=== PATIENT | female | born 1965 | race Caucasian/White ===

== ENCOUNTER 2024-01-10 14:08 | Outpatient (REF) | payer MEDICARE, MEDICAID, SELFPAY ==
--- NOTE | ~2024-01-10 | XR_ITS ---
EXAMINATION: XR CHEST CLINICAL INFORMATION: Cough. COMPARISON: None available. TECHNIQUE: 3 views of the chest. FINDINGS: The lungs are well-inflated. Mild degenerative changes in the thoracic spine. S-shaped thoracolumbar scoliosis. Heart size is normal. Left subclavian approach pacer with leads projecting over right atrium and right ventricle. Mild streaky opacities at the left lung base may represent mild subsegmental atelectasis/fat pad, however, an infectious/inflammatory process should also be considered in the appropriate clinical setting. XR/XR chest 2V IMPRESSION: Mild streaky opacities at the left lung base may represent mild subsegmental atelectasis/fat pad, however, an infectious/inflammatory process should also be considered in the appropriate clinical setting.
--- NOTE | ~2024-01-10 | XR_ITS ---
EXAMINATION: XR SHOULDER, LEFT CLINICAL INFORMATION: Pain and degenerative joint disease COMPARISON: None available. TECHNIQUE: AP external rotation, Grashey, scapular Y, and axillary views of the left shoulder. FINDINGS: The bones and soft tissues are unremarkable aside from some mild degenerative changes at the AC joint. No fracture. Glenohumeral and acromioclavicular alignment is anatomic with glenohumeral normal joint space. No abnormal soft tissue calcifications. A left chest wall pacemaker is partially visualized. XR/XR shoulder LT min 2V IMPRESSION: Mild degenerative changes at the AC joint.
== END 2024-01-10 14:09 | disposition home or self-care (01) ==
LOC: HO.XRAY 14:08
PROVIDERS: PCP Internal Medicine; Visit Provider Internal Medicine
DX: R05.9 Cough, unspecified (principal); M25.512 Pain in left shoulder
CPT/HCPCS: 71046; 73030

== ENCOUNTER 2025-02-13 13:02 | Outpatient (AMB) | payer MEDICARE, MEDICAID, SELFPAY ==
--- OUTSIDE RECORDS SUMMARY | 2020-08-03 04:36 | XMS_ITS | Continuity of Care Document ---
Author Organization [employer] [facility] Address [address] [place] [address] Phone Care Team Providers Care Flanging Roll Operator Name Role Phone Unavailable Unavailable Unavailable Medications Medication Instructions Dosage Effective Dates (start - stop) Status Comments Prozac 40 mg capsule take 2 capsule by oral route every day in the morning 80 MG - Active atorvastatin 10 mg tablet take 1 tablet by oral route every day 10 MG - Active hydroxyzine pamoate 25 mg capsule take 1 capsule by oral route every day 25 MG - Active alprazolam 0.5 mg tablet take 1 tablet by oral route BID prn severe anxiety - No Longer Active she will see psychiatrist on Monday for evaluation and refill if indicated. this is short dx Procedures Procedure Date OFFICE/OUTPATIENT VISIT, EST PHONE E/M BY PHYS 21-30 MIN BEHAV CHNG SMOKING 3-10 MIN PHONE E/M BY PHYS 21-30 MIN Depression Screen Negative Clin depres scrn Positive no f/u doc Dec Telehealth Visit Clin depres scrn Positive no f/u doc November OFFICE/OUTPATIENT VISIT, EST Telehealth Visit OFFICE/OUTPATIENT VISIT, EST OFFICE/OUTPATIENT VISIT, NEW As per patient privacy policy some of the clinical information may not be visible. Advance Directives Directive Yes / No Effective Date File Name No Information Encounters Encounter Description Practice Location Reason(s) For Visit Diagnoses Date Provider Providers Copied on Encounter OFFICE/OUTPA TIENT VISIT, EST [facility], [address], [place], [id number], [place] tel:[phone] Medical Anxiety (chief complaint)M edications (chief complaint)T H visit (chief complaint) Anxiety disorder, unspecifiedHyper lipidemia, unspecified hyperlipidemia type 1 No Information Referring Provider: [facility], [address] [place] [address], [id number]. tel:[phone] [facility], [address], [place], [id number], [place] tel:[phone] Medical Telehealth (chief complaint)i nsomnia (chief complaint) Insomnia, unspecified type 0 No Information PHONE E/M BY PHYS 21-30 MIN [facility], [address] [place] [address], [id number], [place] tel:[phone] Medical Follow Up of anxiety (chief complaint)t elehealth (chief complaint) Nicotine dependence, unspecified, uncomplicatedEnc ounter for screening for depressionAnxiet yHyperlipidemia, unspecified hyperlipidemia type 0 No Information Referring Provider: [facility], [address] [place] [address], [id number]. tel:[phone] [facility], [address], [place], [id number], [place] tel:[phone] Medical No Information 0 No Information [facility], [address], [place], [id number], [place] tel:[phone] Medical No Information 0 No Information [facility], [address], [place], [id number], [place] tel:[phone] Medical Follow Up of Hospital Visit (chief complaint)T elehealth Visit (chief complaint)h yperlipidem ia (chief complaint)p rolonged QT syndrome (chief complaint)a nxiety disorder etc (chief complaint)c hronic conditions (chief complaint) Hyperlipidemia, unspecified hyperlipidemia typeAnxietyObesi ty, unspecifiedNicot ine dependence, unspecified, uncomplicatedHis tory of drug-induced prolonged QT interval with torsade de pointesPresence of combination internal cardiac defibrillator (ICD) and pacemakerScreeni ng mammogram, encounter forScreening for malignant neoplasm of colon 0 No Information [facility], [address], [place], [id number], [place] tel:[phone] Medical Depression (chief complaint)T elehealth (chief complaint) Nicotine dependence, unspecified, uncomplicatedEnc ounter for screening for other disorderUnspecif ied mood [affective] disorder 0 No Information Referring Provider: [facility], [address] [place] [address], [id number]. tel:[phone] [facility], [address], [place], [id number], [place] tel:[phone] Information 0 Meseret Lyons. [address] [place] [address], [address], [place]. tel:[phone] OFFICE/OUTPA TIENT VISIT, [facility], [address], [place], [id number], [place] tel:[phone] Medical anxiety, depression (chief complaint)t elehealth (chief complaint) Encounter for screening for other disorderAdjustme nt disorder with mixed emotional featuresAnxiety 0 No Information Referring Provider: [facility], [address] [place] [address], [id number]. tel:[phone] OFFICE/OUTPA TIENT VISIT, [facility], [address], [place], [id number], [place] tel:[phone] [facility] F/U (chief complaint) Body mass index (BMI) 30.0-30.9, adultObesity, unspecifiedAnxie tyAdjustment disorder with mixed emotional features No Information Referring Provider: [facility], [address] [place] [address], [id number]. tel:[phone] OFFICE/OUTPA TIENT VISIT, [facility], [address] [place], [place], [id number], tel:[phone] Patient Visit (chief complaint)p sychiatry referral (chief complaint) Body mass index (BMI) 19.9 or less, adultBody mass index (BMI) 30.0-30.9, adultObesity, unspecifiedAnxie tyAdjustment disorder with mixed emotional features No Information Referring Provider: [facility], [address] [place] [address], [id number]. tel:[phone] As per patient privacy policy some of the clinical information may not be visible. Family History Family Member Type Diagnosis Age At Onset Mother Problem (finding) hypertension Problem (finding) Family history of hyper tension Paternal grandfather Problem (finding) suicide Father Problem (finding) sudden (Cause Of ) 42 Father Problem (finding) prolonged QT (Cause Of ) Brother Problem (finding) suicide Problem (finding) Myocardial infarction Mother Problem (finding) alzheimer's disease Immunizations Vaccine Date Status Comments Hep A (adult) not administered Source: Ne w Immunization Record Hep B, adult, 3 dose not administered Lucia rce: New Immunization Record Tdap not administered Source: New Immunization Record Td (adult), adsorbed not administered Lucia rce: New Immunization Record Tdap not administered Source: New Immunization Record Influenza quad IM not administe red Source: New Immunization Record Payers Payer name Insurance type Covered alliance party ID Authoriza tion(s) [employer] Dual Advantage [id number] 07 [facility] [id number] Medicare MB [id number] Medicare MB [id number] Social History Type Description Quantity Date Captured Comments Alcohol Use Details No Caffeine Use Details coffee 1 cup per day Tobacco Use Status Current non-smoker Smoking Status Former smoker Non-Smoking Tobacco Use Details : No Details Available : No Details Available Sex Female Sexual Orientation Straight or heterosexual Gender Identity Female Chief Complaint And Reason For Visit From encounter dated '08/03/2020 08:36'. Anxiety (chief complaint) Medications (chief complaint) TH visit (chief complaint). Description: The patient verbally consented to the virtual check in and/or appointment and understands that a co-pay if applicable will be charged for this visit.Historian: Latesha visit: 8:45 am to 9:10 am Reason For Referral Reason For Referral No Information Plan Of Treatment Date Type Action Status Goal HIV. Due on due Goal PAP. Due on due Goal Colorectal cance r screen, stool DNA QuARTS with hemoglobin TRISTEN. Due on due Goal Depression [place]. Due on due Goal Influenza vaccin e. Due on due Goal Mammogram. Due on due Goal FOBT. Due on due Goal Colonoscopy. Due on 021 due Goal Pap/HPV testing. Due on due Goal HIV. Due on due Goal PAP. Due on due Goal Colorectal cance r screen, stool DNA QuARTS with hemoglobin TRISTEN. Due on due Goal Depression [place]. Due on due Goal Influenza vaccin e. Due on due Goal Pap/HPV testing. Due on due Goal Colonoscopy. Due on due Goal FOBT. Due on due Goal Tobacco cessation counseling completed Goal FOBT. Due on due Goal HIV. Due on due Goal PAP. Due on due Goal Colorectal cance r screen, stool DNA QuARTS with hemoglobin TRISTEN. Due on due Goal Depression [place]. Due on due Goal Influenza vaccin e. Due on due Goal Pap/HPV testing. Due on due Goal Colonoscopy. Due on due Goal Tobacco cessation counseling completed Goal Colonoscopy. Due on due Goal FOBT. Due on due Goal HIV. Due on due Goal PAP. Due on due Goal Colorectal cance r screen, stool DNA QuARTS with hemoglobin TRISTEN. Due on due Goal Depression [place]. Due on due Goal Influenza vaccin e. Due on due Goal Pap/HPV testing. Due on due Goal Colorectal cance r screen, stool DNA QuARTS with hemoglobin TRISTEN. Due on due Goal Depression [place]. Due on due Goal Influenza vaccin e. Due on due Goal Pap/HPV testing. Due on due Goal Colonoscopy. Due on due Goal FOBT. Due on due Goal HIV. Due on due Goal PAP. Due on due Goal Mammogram. Due on 0 due Goal Influenza vaccin e. Due on due Goal Depression [place]. Due on due Goal Colorectal cance r screen, stool DNA QuARTS with hemoglobin TRISTEN. Due on due Goal PAP. Due on due Goal HIV. Due on due Goal FOBT. Due on due Goal Colonoscopy. Due on due Goal Pap/HPV testing. Due on due Goal Tobacco cessation counseling completed Goal Influenza vaccin e. Due on due Goal Mammogram. Due on 0 due Goal Pap/HPV testing. Due on due Goal Colonoscopy. Due on due Goal FOBT. Due on due Goal HIV. Due on due Goal PAP. Due on due Goal Colorectal cance r screen, stool DNA QuARTS with hemoglobin TRISTEN. Due on due Goal Depression [place]. Due on due Goal Pap/HPV testing. Due on due Goal Colonoscopy. Due on 020 due Goal FOBT. Due on due Goal HIV. Due on due Goal PAP. Due on due Goal Colorectal cance r screen, stool DNA QuARTS with hemoglobin TRISTEN. Due on due Goal Depression [place]. Due on due Goal Influenza vaccin e. Due on due Goal Mammogram. Due on 0 due Goal Pap/HPV testing. Due on due Goal PAP. Due on due Goal Colonoscopy. Due on 019 due Goal FOBT. Due on due Goal HIV. Due on due Goal Influenza vaccin e. Due on due Goal Colorectal cance r screen, stool DNA QuARTS with hemoglobin TRISTEN. Due on due Goal Depression [place]. Due on due Goal Mammogram. Due on 9 due Goal Lifestyle educat ion regarding diet completed Goal Colonoscopy. Due on 019 due Goal FOBT. Due on due Goal HIV. Due on due Goal Influenza vaccin e. Due on due Goal Pap/HPV testing. Due on due Goal PAP. Due on due Goal Depression [place]. Due on due Goal Colorectal cance r screen, stool DNA QuARTS with hemoglobin TRISTEN. Due on due Goal Mammogram. Due on 9 due Goal Lifestyle educat ion regarding diet completed Goal Lifestyle educat ion regarding diet completed Referral Ordered: Gastroenterology (related to Screening for malignant neoplasm of colon) ordered Referral Ordered: Referrals: Gastroenterology. Diagnostic testing ordered Referral Ordered: Referrals: Psychiatry. Consult ordered Referral Ordered: Referrals: Behavior Health. Consult Appointment date/timeframe: 06/27/2019 ordered Future Order: Radiology Order ~M ammo Scrn Dig W/CAD BI ([id number]) ([id number]), Ordered on: Ordered Future Order: Lab Order CBC With Differential/Platelet ([id number]), Ordered on: Ordered Future Order: Lab Order Comp. Me tabolic Panel (14) ([id number]), Ordered on: Ordered Future Order: Lab Order Lipid Pa belia ([id number]), Ordered on: Ordered Future Order: Lab Order TSH ([id number]), Ordered on: Ordered As per patient privacy policy some of the clinical information may not be visible. History Of Present Illness Encounter Date Complaint History Of Prese nt Illness Medications She will not wea r a mask, so that is a barrier to getting mammogram and lab work. She had started seeing in our clinic and claims she had a hard time getting a hold of her and so she gave up. TH visit The patient lili truong consented to the virtual check in and /or appointment and understands that a co-pay if applicable will be charged for this visit.Historian: Latesha visit: 8:45 am to 9:10 am Medications Anxiety Anxiety she was seeing [facility] and the her insurance was not covering and she went to Judy Sarkar at [facility] and she claims she just wants to put her in the hospital and commit her. She called EMS a few days ago and was advised she was drug seeking and was sent home. she claims she is having more stress over the presidential inauguration this week.She had recently been seeing Kizzy East NP and she was prescribing benzo for her and it looks like on the pdmp, she was asking for them sooner and sooner, as she has done in the past. She states she has been off of them, and still feels like it would be nice to take one occasionally when she gets anxious. Telehealth The patient lili truong consented to the virtual check in and /or appointment and understands that a co-pay if applicable will be charged for this visit.audio visit from 10:49 am to 11:15 am insomnia she is not takin g her meds as prescribed by [facility]. claims she doesn't like the way they make her feel. she is taking fluoxetine 80mg and prescribed by me, claims [facility] isn't seeing her any longer due to her insurance.she has been treated with thorazine, trazodone no help, seroquil made her feel like she was floating out of her body, hydroxyzine no help and temazepam made her feel like she was getting shocks to the heart Only xanax helps her per her hx. insomnia The patient pres ents with sleep problems. The patient has the following risk factors for insomnia: smoking. The patient does not have: use of alcohol.Additional information: waking with a headache, claims she doesn't go to sleep, and is crying all night and that she doesn't ever fall asleep but get close and never falls into a deep sleep. Telehealth COVID-19 Screeni ng Questionnaire: Have you gone to ER/urgent care for s/s of high fever, cough, shortness of breath, or other concerning respiratory symptoms? N oHave you been screened or tested for covid-19/brown virus within the last 2 weeks? N oDo you live with, or regularly exposed to someone with a diagnosis of covid-19/brown virus? NoAre you currently ill? NoHave you had chills, repeated shaking with chills, muscle pain, headache, sore throat, loss of taste or smell? No Follow Up of anxiety she has an appt with [facility], she likes her therapist, bt not the DR. she claims she is wanting to move out of the country due to the current COVID pandemic and that she doesn't want to move out. She is stressed out about the world issues. She did miss her appt with the heart Dr for follow up on pacemaker. she is not taking lipitor due to fear of interaction with pacemaker, she has quit asa, due to lost the bottle of asa. She has an appt with therapist this afternoon at 1 pm. She is not impressed with her Therapist (Nan?) due to she states she supports she agrees with tearing down the [facility] statue. She feels like her life doesn't matter, and she is begging for like 5 xanax for sleep. she claims her Dr from [place] called her this am, 6 am to discuss how she is doing, and she told him she needed xanax and she claims she was told to ask her PCP for it. I have tried to educated her that the Dr at [facility] will need to be the one who considers prescribing it for her as we have had an issue with her meds in the past and we have had several discussions about how she has had inappropriate refills and lost RX. Pt is actually in more control of her emotions and better able to express herself without having had the xanax. I have encouraged her to keep her appt with the therapist this afternoon and continue to follow up with . telehealth Have you gone to ER/ Urgent care for s/s of high fever, cough, SOB, or other concerning respiratory symptoms? No. Have you been screened or tested for Covid-19/ Brown virus? No. Do you live with, or regularly exposed to someone with a diagnosis of Covid-19/ Brown virus? No.Have you had chills, repeated shaking w/ chills, muscle px, headache, sore throat and new loss of taste or smell? No.audio visit from 11:01 am to 11:22 am The patient verbally consented to the virtual check in and /or appointment and understands that a co-pay if applicable will be charged for this visit. Follow Up of anxiety chronic conditions *See Chronic Conditions HPI Telehealth Visit Chart Preparati on for Telehealth visitHave you gone to the ER/Urgent care for s/s of high fever, cough, SOB, or other concerning respiratory symptoms? NOHave you been screened or tested for COVID-19/coronavirus? NODo you live with and/or are regularly exposed to someone with a diagnosis of COVID-19/Coronavirus? NOHave you had chills, repeated shaking with chills, muscle pain, headache, sore throat and/or new loss of taste and/or smell? NOAttempt 1 @ 9 AMAttempt 2 @ 9:04 AM I did reach her this am and she was in an ambulance ready to go to the ER to have her heart evaluated, rescheduled her appt to this evening and we were able to have a good visit.audio visit from 4:00pm to 4:32 pm Follow Up of Hospital Visit Arabella genao went to ER today as well; diagnosed at sever anxiety attack per ER. She was evaluated and found to be without cardiac concerns. She has a FH of prolonged OT syndrome, that she was unaware of until her heart arrythmia V-tach, she had an observed syncopal episode on 12/24/2019, she presented to the ER and was kept in the ICU until she underwent pacemaker placement. She is a little upset that she didn't have her DNR at the time and they would not have saved her, she is now afraid to . She has followed up with respiratory care technician for wound evaluation and pacemaker check and was found to be doing well. she had called several times requesting narcotic pain meds for the surgical site, I did prescribe tramadol, she said she wouldn't fill it she was afraid to take it. when she was in the hospital she was abruptly taken off her psych meds which may have contributed to her erratic behavior since discharge. She has called this office several times, gone to the ER several times. I have followed these visits and calls and it is clear to me she does have drug seeking behavior, and i have been castillo with her on getting her to get in to [facility] for proper management of her psych meds, she is aware I am not comfortable prescribing them any longer. I have reviewed with her to the best of my knowledge about her pacemaker defibrillator, I am not clear on what the box near her bed is, but I suspect is a way to notify the covered buckle assembler if she is having any problems, she seemed to appreciate this information. anxiety disorder etc After sever al months and a move to a different state and near experience she is finally seeking BH from [facility] she has had her intake, she did see therapist via today and is scheduled to see psychiatrist January 14. She reports the visit she had today with the therapist went OK. She actually went to the ER via ambulance today due to concerns with her heart, she was given an Ambien there, which i believe has helped her anxious state.She understands that she is to continue with them for all of her mental health needs as I am no longer comfortable prescribing benzodiazepines to her, I have caught her in lies or half truths on more then 1 occasion. We have discussed them prolonged QT syndrome quite poss ibly a family hx of this, she has been advised to let her 3 children know she has this and to be evaluated by their PCP hyperlipidemia Risk factors inc lude age over 50, depression and family history of HTN. The patient is adhering to medication and follow-up for their hyperlipidemia. Hyperlipidemia management includes statins. Additional information: she is advised to resume her atorvastatin today. Telehealth Patient has give n consent for telemedicine appointment. Start time: 10:10 AM. End time: 10:21 AM. Depression Telehealth Have you gone to the ER/Urgent care for s/s of high fever, cough, shortness of breath, or other concerning respiratory symptoms? noHave you been screened or tested for Covid-19/Brown virus? noDo you live with, or regularly exposed to someone with a diagnosis of Covid-19/ Brown Virus? no Depression PHQ 14 today, Be ck's score 39. Says she's afraid to take any medication, says she has borderline personality disorder and anxiety and they weren't very clear to me when I left the hospital. Says she was told her to throw away her Rexulti, doesn't have any alprazolam. Has Prozac but afraid to take it and hasn't taken it since discharged from hospital. Afraid it's going to do something to make her heart stop again. Had a heart attack and heart stopped, says this is why she was in the hospital most recently. Says they ignored her mental health while she was in the hospital. Says she was on Rexulti for about a year, was increased about 2-3 months ago. Had an appointment with [facility] on the day she had a heart attack, next appointment is on 01/07 with [facility]. Feels like her depression can't wait, she feels scared. Supposed to be taking 2 mg of alprazolam per day and 80 mg fluoxetine per day, says that I'm even afraid to take aspirin. Says her son-in-law went camping and took her Xanax medication with him, she doesn't know why. This was Rx'ed by PCP about 4 days ago.Saw covered buckle assembler yesterday, doesn't know if she was advised to start/stop aspirin? No clinic notes for specialist available yet.Not interested in speaking with the crisis counselors. telehealth patient has been offered a telehealth visit by telephone. She has been informed that this is the formal visit , that insurances and copays still apply., and will be billed. She was given the opportunity to cancel, or reschedule the appointment and has elected to continue by phone.started 1899ended 1914she was at the er last night due to anxiety was advised to set up with [facility] which she contacted today she was given 1 ativan last night after requesting xanax also given hydroxyzine which does not help it was given by er as well/ she states it only makes her sleepy she is depressed and anxious ongoing problems takes prozac 80 mg daily has not stopped taking it when she called here today the triage note states she declined but wanted a refill of her medication review of her chart from her PCP indicates patient has a long history of potential abuse of xanax she was actively tapering her down from xanax when patient was in [place] back in [place]/ [place] x 1 weekas far as I could gather no suicidal ideation is present tonight just desperation trying to have xanax refill anxiety, depression Have you carlos alberto e to the ER/UC for s/s of high fever, cough, sob, or other concerning respiratory sx? NoHave you been screened or tested for covid-19? NoDo you live with or have you regularly been exposed to someone with a dx of covid-19? NoHave you had chills, repeated shaking with chills, muscle pain, headache, sore throat and new loss of taste or smell? No [facility] F/U pt claims she is planning to return back to [place] to take care of her demented mother. She is homeless here, she has been staying in homeless long term for the past week, and will be leaving to [place] on am. Her sister is helping her get home. she claims the night she ended up in the hospital she was thrown out of the car by her son in law and she claims he must have picked up the medication, alprazolam. She claims she never got the medication and then ended up at the ER at [facility]. Her daughter who abuses meth supposedly got her evicted in [place]. New Patient Visit Moved her from [place] and needs to be established with a PCP; needs to be seen by . Went to ER due to running out of alprazolam and they will not give her an rx for it and she is withdrawing now from that. Review of PDM PCP patient has been receiving 0.5 mg alprazolam enough for twice a day only that has been prescribed from a physician from [place]. Patient has presented to the ER a few times to get her medications refilled which I have advised her is not appropriate psychiatry referral she moved he 1 month ago due to eviction in her last state of [place], she moved here to be with her son in law and grandson, she lives with them. she has disability. she has been on xanax for 8 months, she had been on clonopin she felt wired on this medication, hydroxyzine didn't work, buspar that was horrible gave her the jitters and made everything worse on it for a month. she has only seen a psychiatrist. she is fixated on her anxiety. she is insistent on seeing psychiatrist and she is willing to see as well. she denies any use etoh, MJ or other drugs, only cigarettes. Functional Status Date Functional Assessmen t No Information Instructions Date Instruction Additional Infor ramon I would like for he to come in for lab work and check her BP, but she is not willing to wear a mask at all and that is a barrier to her coming into the clinic for either of these, so will have to wait until she is either willing to wear a mask or until mask wearing is lifted. I will cont to prescribe atorvastatin as before. Related to Hyperlipidemia, unspecified hyperlipidemia type she declined referra l to in our clinic and stated it would be a waste of time. She believes I am not able to prescribe to her due to someone looking over my shoulder, I did express to her that is not why I won't prescribe to her, that I don't feel comfortable prescribing to her due to past experience with prescribing to her. However, I am comfortable prescribing the fluoxetine and hydroxyzine for her. Related to Anxiety disorder, unspecified I had to let [facility] is evaluate her and she is upset that I am not willing to RX xanax, after a long hx of concerns for her safety and misuse of this med, I am still not comfortable with it. She was not RX'd this from [facility] and was seeing therapist and psychiatrist. I still strongly feel this is not a safe medication for her or any benzodiazepine Related to Insomnia, unspecified type she is to keep her a ppt with therapist this afternoon and keep appt with . discuss her BH with them as that is where she it to continue to get her BH, I did remind her that I will not prescribe it for her due to past hx. After today's visit, i feel like she is actually doing better without the xanax. She is to stop watching the news, and agree to disagree with family and others about political and other non important things, I have encouraged her to call her daughter and apologize for hanging up on her for expressing her plan on voting for president. Try to not think about what she told me about the therapist. Do not start marijuana. plan for f/u to discuss her issues with insomnia. Related to Anxiety I have encouraged he r to resume the lipitor and asa. She did miss appt with cardio and she is encouraged to keep the next one. Related to Hyperlipidemia, unspecified hyperlipidemia type Pt smokes cigarettes and discussed opportunities to quit. Offered quitline referral and information and counseled for at least 5 minutes. 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 Related to Anxiety new, see HPI. she wi ll follow up with cardiology as planned. Related to Presence of combination internal cardiac defibrillator (ICD) and pacemaker she is advised to re sume her cholesterol med and she will come in for fasting lab work and will call her with the results and recommendations Related to Hyperlipidemia, unspecified hyperlipidemia type Patient declined tra nsfer to a crisis counselor. She was advised to call clinic to speak with crisis therapist if later decides she needs to. Discussed no Xanax refill, I recommend she continue the Prozac as prescribed, hasn't taken in a few days since discharge from hospital and this may be contributing to acute depression/anxiety. Must keep appointment with [facility] on 01/07. Follow-up with PCP as planned. Advised she call covered buckle assembler today to verify if needing to start aspirin. Related to Unspecified mood [affective] disorder continue with the hy droxyzine rx'd through ER. She is advised I am uanble to refill her xanax she will need to have health adjust her medications at which point she advised me she will just go to the ER i replied, that if that is what she needs then she should go. i advised her I would be happy to refill her prozac if needed but no xanax. Related to Anxiety she is encouraged to complete her contact at [facility] since she declined BH here continue taking prozac Related to Adjustment disorder with mixed emotional features Patient is given ref ills of present lamp and other medications as requested. As she will be moving to [place] I have agreed to continue to provide refills on her medications until 17 August therefore she has nearly 2 months to establish care with another provider in her home town. Related to Anxiety Giving encouragement to exercise Related to BMI of 30.0 - 30.9 (Obese) Lifestyle education regarding di et Related to BMI of 30.0 - 30.9 (Obese) refill other meds an d will refer to psychiatry as requested and for therapy Related to Adjustment disorder with mixed emotional features refill RX and she is to fill out records release for history. she will keep her NPV appt. Related to Anxiety Lifestyle education regarding di et Related to BMI of 30.0 - 30.9 (Obese) Lifestyle education regarding di et Related to BMI less than 19 Giving encouragement to exercise Related to BMI of 30.0 - 30.9 (Obese) Assessments Type Assessment Date assessment Anxiety disorder, unspecified Ja assessment Hyperlipidemia, unspecified hype rlipidemia type Mental Status Date Cognitive Assessment Orientation - Parad[place] ed to time, place, person, situation. Patient Care Teams Name Effective Dates (start - stop) Status Members No Information
--- NOTE | 2025-02-13 13:03 | A.OFFPC_ITS ---
Vital Signs 02/13/25 13:06 02/13/25 13:47 Height 5 ft 3.78 in Weight 154 lb BMI 26.6 BP 140/91 H 140/89 H Blood Pressure Location Rt brachial Position Sitting Respiration 14 Pulse 84 Pulse Source Pulse Oximeter Temp 97.9 F Temp Source Temporal Artery Scan Pulse Oximetry (%) 98 Oxygen Delivery Method Room Air Intake Visit Reasons: Establish Care Studio Manager Required: No Accompanied by: Self / Same As Patient Allergies prochlorperazine (From Compazine) Allergy (Mild, Verified 02/13/25 13:47) Unknown Medication List - Last Reconciled 02/13/25 by Shanel Ventura PA-C aspirin 81 mg PO DAILY hydrocodone-acetaminophen 5-325 mg 1 tab PO DAILY hydrocortisone 2.5% 1 appl topical BID-TID PRN lorazepam 0.5 mg PO DAILY naloxone 4 mg/actuation (Narcan) 4 mg intranasal Q2M PRN Tobacco use date assessed: 02/13/25 Dental Screening Dental Screen Date: 02/13/25 Did you have a dental visit in the last 12 months?: Yes Did you have a dental problem in the last 6 months where you did not have access to dental care?: No Was dental information given to patient?: Patient has dentist (patient has dentures) HPI Establish Care HPI Details The patient is a 59-year-old female presenting for new patient appointment as she was a patient of Dr. Betts. She is presenting with tinnitus in the left ear and eczema on the legs and shoulder. The tinnitus in the left ear began a few weeks ago, initially constant for a couple of days, then intermittent. The patient reports it is currently present but manageable, though it was previously disruptive enough to cancel plans. There is no history of ear surgery or balance issues associated with the tinnitus. The eczema has been present on the legs for two years and recently appeared on the shoulder. Previous treatment with a prescription cream caused burning, leading the patient to use [id number] hydrocortisone with some improvement. The patient suspects psoriasis but was previously diagnosed with eczema by Dr. Betts. 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 Alfaro. She is not on any cardiology medications except aspirin. The patient experiences arthritis in the left shoulder, for which she occasionally takes hydrocodone acetaminophen, especially when caring for her mother. She prefers ibuprofen for less severe pain and does not take hydrocodone daily. The patient reports anxiety related to living alone, occasionally using lorazepam, though she has not taken it since November. She was receiving a prescription for hydrocodone 3 times a day and lorazepam 0.5 mg 3 times a day although we discussed about reducing this to 1 time a day for this month and then it will be PRN and she will get a prescription for 15 tablets going forward after this prescription. Patient was agreeable to this. Social History - Lives alone and experiences anxiety re lated to this situation - Occasionally cares for her mother, inv olving physical activity such as lifting PFSH Medical History (Updated 02/13/25 @ 14:13 by Shanel Ventura PA-C) Anxiety Arthritis Tinnitus Eczema Pacemaker Prolonged QT syndrome Family History Father Heart problem Mother AD (Alzheimer's disease) Social History Housing: Apartment Alcohol intake: current Alcohol intake frequency: does not drink Patient Tobacco Use Status: Former Tobacco user Substance Use Type: Marijuana service: No Current occupational status: disabled Cognitive needs: No Hearing needs: No Vision needs: Yes (rx glasses) Questionnaire PHQ-9 Over the last 2 weeks, how often have you been bothered by any of the following problems? 1. Little interest or pleasure in doing things: not at all 2. Feeling down, depressed, or hopeless: not at all 3. Trouble falling or staying asleep, or sleeping too much: not at all 4. Feeling tired or having little energy: not at all 5. Poor appetite or overeating: not at all 6. Feeling bad about yourself - or that you are a failure or have let yourself or your family down: not at all 7. Trouble concentrating on things, such as reading the newspaper or watching television: not at all 8. Moving or speaking so slowly that other people could have noticed. Or the opposite - being so fidgety or restless that you have been moving around a lot more than usual: not at all 9. Thoughts that you would be better off or of hurting yourself in some way: not at all Total score: 0 Depression Screening Interpretation: Negative Depression Screening Done: Yes 22534 - PHQ-9 Billing: Yes Source: Developed by Drs. Luis Vásquez, Mundo Barrera and colleagues, with an educational sherly from [employer]. Thrive Questionnaire Date Thrive assessed: 02/13/25 I am a: Patient What is your living situation today?: I have a steady place to live Within the past 12 months, did the food you bought not last and you didn't have the money to get more?: Never true Within the past 12 months, did you worry whether your food would run out before you got money to buy more?: Never true Do you have trouble paying for medicines?: No Do you have trouble getting transportation to medical appointments?: No Do you have trouble paying your heating and electricity bill?: No Do you have trouble taking care of your child, family member or friend?: No Do you have trouble with day-to-day activities such as bathing, preparing meals, shopping, managing finances, etc.?: No Are you currently unemployed and looking for a job?: No Are you interested in more education?: No Please select the resources that you would like help with: None THRIVE Score: 0 AUDIT C Alcohol Use Questionnaire (AUDIT-C) 1. How often do you have a drink containing alcohol?: Never 3. How often do you have six or more drinks on one occasion?: Never Total Score: 0 Score Reviewed/Action Taken: No TAMMIE-7 AMB Questionnaire TAMMIE-7 Date TAMMIE - 7 assessed: 02/13/25 Feeling nervous, anxious, or on edge: 0 = Not at all Not being able to stop or control worryin = Not at all Worrying too much about different things: 0 = Not at all Trouble relaxin = Not at all Being so restless that it is hard to sit still: 0 = Not at all Becoming easily annoyed or irritable: 0 = Not at all Feeling afraid as if something awful might happen: 0 = Not at all Total TAMMIE-7 score (0-4 normal; 5-9 mild; 10-14 moderate; 15-21 severe): 0 Source: Developed by Paulina Ortega Kurt Kroenke and colleagues, with an educational sherly from [employer]. TAMMIE-7 Assessment Billing TAMMIE-7 Assessment Tool: TAMMIE-7 Assessment 27588 Review of Systems Const Details: - Ears: Reports intermittent tinnitus in the left ear for a few weeks. Denies balance issues or ear surgery. - Dermatological: Reports eczema on legs and shoulder for two years. Denies other locations. - Musculoskeletal: Reports arthritis in the left shoulder. Denies daily medication use. - Psychiatric: Reports anxiety related to living alone. Denies recent use of lorazepam since November. Physical exam (Primary Care) Vital Signs: Last Vital Signs Temp 97.9 F 02/13/25 13:06 Pulse 84 02/13/25 13:06 Resp 14 02/13/25 13:06 BP 140/91 H 02/13/25 13:06 Pulse Ox 98 02/13/25 13:06 Oxygen Delivery Method Room Air 02/13/25 13:06 Care Plan Goal for BP management: <140/90 patient at 140/90 at this time. Instructed patient to follow-up with her local government legislator regarding this as she is not on antihypertensive at this time patient reports she does have an appointment coming up with Cardiology BMI result Body Mass Index 26.6 BMI Assessment/Plan discussion: High BMI High, discussed plan: lifestyle, weight reduction, dietary, physical activity and alcohol moderation Tobacco/Smoking Status: Tobacco use Status Tobacco use date assessed 02/13/25 02/13/25 13:16 Patient Tobacco Use Status Former Tobacco user 02/13/25 13:16 PHQ-9: PHQ-9 Score PHQ-9: Total score 0 02/13/25 13:16 Depression Screening Interpretation: Negative Thrive Assessment: Date of Thrive Assessment Date Thrive assessed 02/13/25 02/13/25 13:16 Const Other: Appearance: Alert. Oriented X3. No acute distress. Head: Normal external exam. Normocephalic. Atraumatic. Eyes: Pupils are equal, round, and reactive to light. Extraocular movements intact. Conjunctiva and sclera normal. Eyelids normal. Ears: Left ear with ringing, otherwise external auditory canal normal. Tympanic membranes normal. Mastoids are within normal limits. No cerumen impaction noted. No abnormalities or rashes noted. No signs of infection. Throat: Pharynx normal. Uvula midline. Moist mucous membranes. Neck: Normal inspection. Neck supple. Full range of motion. Cardiovascular: Normal heart rate and rhythm. Heart sound normal. No murmurs noted. Pulses normal throughout. Pacemaker present. Respiratory: No respiratory distress. Painless inspiration. Breath sounds normal. No wheezes/rales/rhonchi noted. Chest nontender. No accessory muscle usage noted or decreased air movement noted. Back: Full range of motion noted. Skin: Skin warm and dry. Normal skin color. Normal skin turgor. Eczema noted on legs and shoulder. No other rashes/lesions/lacerations noted. Extremities: Extremities exhibit normal range of motion. Neuro: Oriented X 3. No motor deficit. No sensory deficit. Reflexes normal. Coding Level of Care Code New Pt Level 4 (79223) Complex EM visit Add On G2211 Diagnoses Tinnitus H93.19 Eczema L30.9 Pacemaker Z95.0 Arthritis M19.90 Anxiety F41.9 Additional Codes PHQ-9 - 49311 - PHQ-9 Billing: Yes ([id number]) TAMMIE-7 Assessment Billing - TAMMIE-7 Assessment Tool: TAMMIE-7 Assessment 06209 ([id number]) Assessment & Plan Assessment & Plan (1) Tinnitus: Code(s): H93.19 - Tinnitus, unspecified ear Category: Medical Plan: The patient will be referred to an Ear, Nose, and Throat specialist for further evaluation of the tinnitus. Blood work will be ordered to rule out any underlying conditions contributing to the tinnitus. (2) Eczema: Code(s): L30.9 - Dermatitis, unspecified Category: Medical Plan: The patient will be referred to a white shoe examiner for further evaluation and management of eczema. A topical ointment will be prescribed to manage the symptoms. (3) Pacemaker: Code(s): Z95.0 - Presence of cardiac pacemaker Category: Medical Plan: The patient is under the care of a local government legislator and will continue with regular follow-ups. No changes to current management are necessary at this time. (4) Arthritis: Code(s): M19.90 - Unspecified osteoarthritis, unspecified site Category: Medical Plan: The patient will continue to use hydrocodone acetaminophen as needed for severe pain, with a plan to reduce usage over time. This month we will reduce from t.i.d. to daily as patient does not take it t.i.d. she reports. Next month we will decrease to 15 total for the month. Ibuprofen is recommended for less severe pain. Patient understands agrees with this plan. (5) Anxiety: Code(s): F41.9 - Anxiety disorder, unspecified Category: Medical Plan: The patient will continue to use lorazepam as needed, with a plan to reduce usage over time. We will decrease to daily at bedtime as patient reports she is not taking it t.i.d.. Next month we will decrease to 15 tablets a month. Patient education on the potential side effects of lorazepam, including the risk of dementia, was provided. Patient understands agrees with this plan. Plan Plan Patient was informed and verbally consented to the use of an ambient scribe for clinic note documentation during this visit. 1. Tinnitus The patient will be referred to an Ear, Nose, and Throat specialist for further evaluation of the tinnitus. Blood work will be ordered to rule out any underlying conditions contributing to the tinnitus. 2. Eczema The patient will be referred to a white shoe examiner for further evaluation and management of eczema. A topical ointment will be prescribed to manage the symptoms. 3. Pacemaker Status Post-Cardiac Arrest The patient is under the care of a local government legislator and will continue with regular follow-ups. No changes to current management are necessary at this time. 4. Arthritis The patient will continue to use hydrocodone acetaminophen as needed for severe pain, with a plan to reduce usage over time. Ibuprofen is recommended for less severe pain. 5. Anxiety The patient will continue to use lorazepam as needed, with a plan to reduce usage over time. Patient education on the potential side effects of lorazepam, including the risk of dementia, was provided. Patient will have the hydrocodone acetaminophen decreased from t.i.d. to daily this month next month it will be decreased to 15 tablets for the entire month. Lorazepam will also be decreased from t.i.d. to bedtime as patient is not taking it t.i.d.. Next month we will decrease to 15 tablets for the entire month. Patient understands agrees with this plan. I discussed with the patient the referral to an Ear, Nose, and Throat specialist for the tinnitus and a white shoe examiner for the eczema. We talked about the use of hydrocodone acetaminophen and lorazepam, emphasizing the importance of reducing usage over time and the potential side effects of lorazepam, including the risk of dementia. The patient was informed about the need for regular follow-ups with her local government legislator and the plan to order blood work to rule out any underlying conditions contributing to her symptoms. Orders: Orders C Reactive Protein Today Z00.00 - Encounter for general adult medical examination without abnormal findings Hemoglobin A1c Today Z00.00 - Encounter for general adult medical examination without abnormal findings Magnesium Today Z00.00 - Encounter for general adult medical examination without abnormal findings TSH reflex Free T4 Today Z00.00 - Encounter for general adult medical examination without abnormal findings Complete Blood Count Auto Diff Today Z00.00 - Encounter for general adult medical examination without abnormal findings Comprehensive [place]. Panel Fast Today Z00.00 - Encounter for general adult medical examination without abnormal findings Liver Panel Today Z00.00 - Encounter for general adult medical examination without abnormal findings Vitamin B12 and Folate Today Z.00 - Encounter for general adult medical examination without abnormal findings Vitamin D 25-OH Total Today Z00.00 - Encounter for general adult medical examination without abnormal findings Lipid Panel Today Z00.00 - Encounter for general adult medical examination without abnormal findings Referrals Ear/Nose/Throat Referral H93.19 - Tinnitus, unspecified ear Dermatology Referral L30.9 - Dermatitis, unspecified Medications: New 2 naloxone 4 mg/actuation (Narcan) spray 1 dose into ONE nostril; alternate nostrils w each dose until help arrives 4 mg intranasal Q2M PRN 2 ea 0RF opioid overdose hydrocortisone 2.5% 1 appl topical BID-TID PRN 454 grams 1RF itching hydrocodone-acetaminophen 5-325 mg 1 tab PO DAILY 30 tabs 0RF lorazepam 0.5 mg PO DAILY 30 tabs 0RF Patient Instructions: - Follow up with the Ear, Nose, and Throat specialist and white shoe examiner as scheduled. - Use hydrocodone acetaminophen and lorazepam only as needed, and work on reducing usage over time. - Continue regular follow-ups with your local government legislator. - Complete the blood work as instructed, ensuring results are sent to the clinic.
[2025-02-13 13:06] VITALS: BP 140/91; PULSE 84; RESP 14; TEMP 36.6; O2SAT 98; BMI 26.6
--- OUTSIDE RECORDS SUMMARY | 2025-02-13 13:12 | XMS_ITS | Encounter Summary ---
Author Organization [facility] Address [address] [place] [address] Phone Care Team Providers Care Substation Operator Conversion Name Role Phone Diallo Betts MD Primary Care Provider [phone]- [phone] Encounter Details Date Type Department Care Team (Late st Contact Info) Description 07/15/2024 Telephone [facility] [address] [place] [address] [address] Floor, [address] [place] [address] Jimena Rico RN [address] [place], [place] [phone] [email or web address] Social History Tobacco Use Types Packs/Day Years Used Date Smoking Tobacco: Never Assessed Education Answer Date Recorded Are you interested in more education? Not on mable e 11/17/2023 Are you concerned about learning? Not on file 11/17/2023 No 11/17/2023 No 11/17/2023 Digital Access Answer Date Recorded No 11/17/2023 No 11/17/2023 Reliable internet access at home? Not on file 11/17/2023 Device with a working camera? Not on file Comments Unknown Sex and Gender Information Value Date Recorded Sex Assigned at Not on file Legal Sex Female 1:24 PM EDT Gender Identity Not on file Sexual Orientation Not on file documented as of this encounter Plan of Treatment Upcoming Encounters Date Type Department Care Team (Late st Contact Info) Description 03/04/2025 2:40 PM EDT Office Visit [facility] [address] Floor, [address] [place] [address] Benjamín Díaz MD [address] [place] [address] documented as of this encounter Visit Diagnoses Not on filedocumented in this encounter Care Teams Substation Operator Conversion Relationship Specialty Start Date End Date Diallo Betts MD [address] [place] [id number] PCP - General Internal Medicine 03/04/24 documented as of this encounter Additional Source Comments The information contained in this document represents components of the legal health record. It is not the complete legal health record.[facility]
--- OUTSIDE RECORDS SUMMARY | 2025-02-13 13:12 | XMS_ITS | Patient Health Record ---
Author Organization [facility] Address [address] [facility] [place] [address] Care Team Providers Care Air Brush Decorator Name Role Phone sPatricia [phone] Allergies Allergen (clinical drug ingredient) Drug/Non Drug Allergy documented on EMR Reaction Allergy Type Onset Date Status prochlorperazine Prochlorperazine Unknown Drug Allergy Active Reason For Referral No Information Social History Sex Assigned At : Social History Observation Description Sex Assigned At Female Problems Problem Type SNOMED Code ICD Code Onset Dates Problem Status W/U Status Risk Notes Problem Anxiety ([id number]) Anxiety (F41.9) Active confirmed Plan Of Treatment No Information Insurance Providers Payer Name Payer Address Payer Phone Subscriber Number Group Number Insured Name Patient Relationship to Insured Coverage Start Date Coverage End Date NO INSURANCE JUSTINE CAVAZOS Self - patient is the insured
[2025-02-13 13:47] VITALS: BP 140/89
== END 2025-02-13 13:43 | disposition home or self-care (01) ==
LOC: HO.HMCSH 13:02
PROVIDERS: PCP Internal Medicine; Visit Provider Physician Assistant Medical
DX: H93.19 Tinnitus, unspecified ear (principal); L30.9 Dermatitis, unspecified; Z95.0 Presence of cardiac pacemaker; M19.90 Unspecified osteoarthritis, unspecified site; F41.9 Anxiety disorder, unspecified

== ENCOUNTER → 2025-02-13 13:02 | Outpatient (BNVA) | payer MEDICARE, MEDICAID, SELFPAY | PROVIDERS: PCP Internal Medicine; Visit Provider Physician Assistant Medical | DX: L30.9 Dermatitis, unspecified (principal); M19.90 Unspecified osteoarthritis, unspecified site; F41.9 Anxiety disorder, unspecified; H93.19 Tinnitus, unspecified ear; Z95.0 Presence of cardiac pacemaker | CPT/HCPCS: 96127; 99202 ==

== ENCOUNTER 2025-02-19 13:54 | Outpatient (REF) | payer MEDICARE, MEDICAID, SELFPAY ==
--- OUTSIDE RECORDS SUMMARY | 2025-02-19 14:26 | XMS_ITS | Encounter Summary ---
Author Organization [facility] Address [address] [place] [address] Phone Care Team Providers Care Script Coordinator Name Role Phone Diallo Betts MD Primary Care Provider [phone]- [phone] Encounter Details Date Type Department Care Team (Late st Contact Info) Description 07/15/2024 Telephone [facility] [address] [place] [address] [address] Floor, [address] [place] [address] Jimena Rico RN [address] [place], [place] [phone] [email or web address] Social History [...] Description 03/04/2025 2:40 PM EDT Office Visit [facility] [address], [address] [place] [address] Benjamín Díaz MD [address] [place] [address] documented as of this encounter Visit Diagnoses Not on filedocumented in this encounter Care Teams Script Coordinator Relationship Specialty Start Date End Date Diallo Betts MD [address] [place] [phone] PCP - General Internal Medicine 03/04/24 documented as of this encounter Additional Source Comments The information contained in this document represents components of the legal health record. It is not the complete legal health record.[facility]
--- OUTSIDE RECORDS SUMMARY | 2025-02-19 14:26 | XMS_ITS | Patient Health Record ---
Author Organization [facility] Address [address] [facility] [place] [address] Care Team Providers Care Barrel Rifler Operator Name Role Phone sPatricia [phone] Allergies Allergen (clinical drug ingredient) Drug/Non Drug Allergy documented on EMR Reaction Allergy Type Onset Date Status prochlorperazine Prochlorperazine Unknown Drug Allergy Active Reason For Referral No Information Social History Sex Assigned At : Social History Observation Description Sex Assigned At Female Problems Problem Type SNOMED Code ICD Code Onset Dates Problem Status W/U Status Risk Notes Problem Anxiety ([id number]) Anxiety (F41.9) Active confirmed Plan Of Treatment No Information Insurance Providers Payer Name Payer Address Payer Phone Subscriber Number Group Number Insured Name Patient Relationship to Insured Coverage Start Date Coverage End Date NO INSURANCE JUSTINE CAVAZOS Self - patient is the insured
[2025-02-19 16:42] LABS: MANUAL DIFF FLAG NO
[2025-02-19 16:47] LABS: Hematocrit 42.9 % (37.0-47.0); Hemoglobin 14.2 g/dl (12.0-16.0); Imm Gran Abs Auto 0.02 X10*3/uL (0.00-0.03); Imm Gran Pct Auto 0.3 % (0.0-0.4); Lymphocytes Absolute Auto 2.2 X10*3/uL (1.2-4.9); Mean Corpuscular HGB Conc 33.1 g/dl (31.0-35.0); Mean Corpuscular Hemoglobin 30.9 pg (27.0-33.0); Mean Corpuscular Volume 93.5 fL (80.0-98.0); NRBC Abs Auto 0.000 X10*3/uL (0.0-0.012); NRBC Pct Auto 0.0 /100WBC (0.0-0.2); Platelet Count 292 X10*3/uL (160-400); Red Blood Count 4.59 X10*6/uL (4.20-5.50); White Blood Count 6.8 X10*3/uL (4.8-10.8)
[2025-02-19 16:54] LABS: Hemoglobin A1C 138.5035 umol/L; Total Hemoglobin (HGBA1C) 3766.1485 umol/L
[2025-02-19 17:13] LABS: Alanine Aminotransferase 24 U/L (0-31); Albumin Level 4.3 g/dL (3.5-5.0); Alkaline Phosphatase 118 U/L (39-117); Anion Gap 10 (12-20); Aspartate Amino Transferase 34 U/L (5-31); Blood Urea Nitrogen 12 mg/dL (9-16); Calcium 9.5 mg/dL (8.4-10.2); Carbon Dioxide 27 mmol/L (22-29); Chloride 108 mmol/L (96-108); Cholesterol 224 mg/dL (<200); Estimated Glomerular Filt Rate > 60; HDL Cholesterol 47 mg/dL (>40); Magnesium 2.0 mg/dL (1.6-2.6); Potassium 4.1 mmol/L (3.3-5.1); Sodium 141 mmol/L (135-145); Total Protein 7.8 g/dL (6.5-8.0); Triglycerides 142 mg/dL (<150)
[2025-02-19 17:37] LABS: Folate 4.3 ng/mL (> or = 4.0); Vitamin B12 362 pg/mL (200-900)
== END 2025-02-19 13:55 | disposition home or self-care (01) ==
LOC: HO.HMGCLDS 13:54
PROVIDERS: PCP Physician Assistant Medical; Visit Provider Physician Assistant Medical
DX: Z00.00 Encounter for general adult medical examination without abnormal findings (principal); Z13.6 Encounter for screening for cardiovascular disorders
CPT/HCPCS: 36415; 80053; 80061; 80076; 82248; 82306; 82607; 82746; 83036; 83735; 84443; 85025; 86140

== ENCOUNTER 2025-03-27 13:07 | Outpatient (AMB) | payer MEDICARE, MEDICAID, SELFPAY ==
--- OUTSIDE RECORDS SUMMARY | 2020-08-03 04:36 | XMS_ITS | Continuity of Care Document ---
Author Organization [facility] Address [address] [facility] [place] [address] Phone Care Team Providers Care Doorperson Name Role Phone Unavailable Unavailable Unavailable Medications [...] Copied on Encounter OFFICE/OUTPA TIENT VISIT, EST [facility], [address], [place], [id number], [place] tel:[phone] Medical Anxiety (chief complaint)M edications (chief complaint)T H visit (chief complaint) Anxiety disorder, unspecifiedHyper lipidemia, unspecified hyperlipidemia type 1 No Information Referring Provider: [facility], [address] [place] [address], [id number]. tel:[phone] [facility], [address], [place], [id number], [place] tel:[phone] Medical Telehealth (chief complaint)i nsomnia (chief complaint) Insomnia, unspecified type 0 No Information PHONE E/M BY PHYS 21-30 MIN [facility], [address] [place] [address], [id number], [place] tel:[phone] Medical Follow Up of anxiety (chief complaint)t elehealth (chief complaint) Nicotine dependence, unspecified, uncomplicatedEnc ounter for screening for depressionAnxiet yHyperlipidemia, unspecified hyperlipidemia type 0 No Information Referring Provider: [facility], [address] [place] [address], [id number]. tel:[phone] [facility], [address], [place], [id number], [place] tel:[phone] Medical No Information 0 No Information [facility], [address], [place], [id number], [place] tel:[phone] Medical No Information 0 No Information [facility], [address], [place], [id number], [place] tel:[phone] Medical Follow Up of Hospital Visit [...] malignant neoplasm of colon 0 No Information [facility], [address], [place], [id number], [place] tel:[phone] Medical Depression (chief complaint)T elehealth (chief complaint) Nicotine dependence, unspecified, uncomplicatedEnc ounter for screening for other disorderUnspecif ied mood [affective] disorder 0 No Information Referring Provider: [facility], [address] [place] [address], [id number]. tel:[phone] [facility], [address], [place], [id number], [place] tel:[phone] Information 0 Meseret Lyons. [address] [place] [address], [id number], [place]. tel:[phone] OFFICE/OUTPA TIENT VISIT, [facility], [address], [place], [id number], [place] tel:[phone] Medical anxiety, depression (chief complaint)t elehealth (chief complaint) Encounter for screening for other disorderAdjustme nt disorder with mixed emotional featuresAnxiety 0 No Information Referring Provider: [facility], [address] [place] [address], [id number]. tel:[phone] OFFICE/OUTPA TIENT VISIT, [facility], [address], [place], [id number], [place] tel:[phone] [facility] [address] [place] [facility] F/U (chief complaint) Body mass index (BMI) 30.0-30.9, adultObesity, unspecifiedAnxie tyAdjustment disorder with mixed emotional features No Information Referring Provider: [facility], [address] [place] [address], [id number]. tel:[phone] OFFICE/OUTPA TIENT VISIT, [facility], [address], [place], [id number], tel:[phone] Patient Visit (chief complaint)p sychiatry referral (chief complaint) Body mass index (BMI) 19.9 or less, adultBody mass index (BMI) 30.0-30.9, adultObesity, unspecifiedAnxie tyAdjustment disorder with mixed emotional features No Information Referring Provider: [facility], [address] [place] [address], [id number]. tel:[phone] As per patient privacy policy some of [...] Record Payers Payer name Insurance type Covered libertarian ID Authoriza tion(s) [employer]vantage [id number] [address] [facility] [id number] Medicare MB [id number] Medicare MB [id number] Social History Type Description Quantity Date Captured [...] due Goal Tobacco cessation counseling completed Goal PAP. Due on due Goal Colorectal cance r screen, stool DNA QuARTS with hemoglobin TRISTEN. Due on due Goal Depression [place]. Due on due Goal Influenza vaccin e. Due on due Goal Pap/HPV testing. Due on due Goal Colonoscopy. Due on due Goal FOBT. Due on due Goal HIV. Due on due Goal Tobacco cessation counseling completed Goal Pap/HPV testing. Due on due Goal [...] e. Due on due Goal Depression [place]. Due on due Goal Colorectal cance r [...] Depression [place]. Due on due Goal Depression [place]. [...] with hemoglobin TRISTEN. Due on due Goal Colonoscopy. Due on due Goal FOBT. Due on due Goal HIV. Due on due Goal Influenza vaccin e. Due on due Goal Colorectal cance r screen, stool DNA QuARTS with hemoglobin TRISTEN. Due on due Goal Depression [place]. Due on due Goal Mammogram. Due on 9 due Goal Pap/HPV testing. Due on due Goal PAP. Due on due Goal Lifestyle educat ion regarding diet completed Goal Influenza vaccin e. Due on due Goal Pap/HPV testing. Due on due Goal Depression [place]. Due on due Goal Colorectal cance r screen, stool DNA QuARTS with hemoglobin TRISTEN. Due on due Goal Mammogram. Due on 9 due Goal Colonoscopy. Due on due Goal FOBT. Due on due Goal HIV. Due on due Goal PAP. Due on due Goal Lifestyle educat ion regarding diet completed Goal Lifestyle educat ion regarding diet completed Referral Ordered: Gastroenterology (related to Screening for malignant neoplasm of colon) ordered Referral Ordered: Referrals: Gastroenterology. Diagnostic testing ordered Referral Ordered: Referrals: Psychiatry. Consult ordered Referral Ordered: Referrals: Behavior Health. Consult Appointment date/timeframe: 06/27/2019 ordered Future Order: Radiology Order ~M ammo Scrn Dig W/CAD BI ([id number]) ([id number]), Ordered on: Ordered Future Order: Lab Order CBC With Differential/Platelet ([id number]), Ordered on: Ordered Future Order: Lab Order Comp. Me tabolic Panel (14) ([id number]), Ordered on: Ordered Future Order: Lab Order Lipid Pa belia ([id number]), Ordered on: Ordered Future Order: Lab Order TSH ([id number]), Ordered on: Ordered As per patient privacy policy some of the clinical information may not be visible. History Of Present Illness Encounter Date Complaint History Of Prese nt Illness Medications Anxiety Medications She will not wea r a [...] Latesha visit: 8:45 am to 9:10 am Anxiety she was seeing [facility] and the her insurance was not covering and she went to Judy Sarkar at [facility] and she claims she just wants to [...] take one occasionally when she gets anxious. insomnia she is not takin g her meds as prescribed by [facility]. claims she doesn't like the way they make her feel. she is taking fluoxetine 80mg and prescribed by me, claims [facility] isn't seeing her any longer due to [...] throat, loss of taste or smell? No Telehealth The patient lili truong consented to the virtual check in and /or appointment and understands that a co-pay if applicable will be charged for this visit.audio visit from 10:49 am to 11:15 am Follow Up of anxiety she has an appt with [facility], she likes her therapist, bt not the [...] supports she agrees with tearing down the [facility] statue. She feels like her life doesn't matter, and she is begging for like 5 xanax for sleep. she claims her Dr from [place] called her this am, 6 am to discuss how she is doing, and she told him she needed xanax and she claims she was told to ask her PCP for it. I have tried to educated her that the Dr at [facility] will need to be the one who [...] and continue to follow up with . Follow Up of anxiety telehealth Have you gone to ER/ Urgent [...] applicable will be charged for this visit. chronic conditions *See Chronic Conditions HPI Telehealth [...] to . She has followed up with orthopaedic technologist for wound evaluation and pacemaker check and [...] on getting her to get in to [facility] for proper management of her psych meds, she is aware I am not comfortable prescribing them any longer. I have reviewed with her to the best of my knowledge about her pacemaker defibrillator, I am not clear on what the box near her bed is, but I suspect is a way to notify the surgical oncologist if she is having any problems, she seemed to appreciate this information. anxiety disorder etc After sever al months and a move to a different state and near experience she is finally seeking BH from [email or web address] she has had her intake, she did [...] is advised to resume her atorvastatin today. Depression PHQ 14 today, Be ck's score [...] 2-3 months ago. Had an appointment with [email or web address] on the day she had a heart attack, next appointment is on 01/07 with [email or web address]. Feels like her depression can't wait, she feels scared. Supposed to be taking 2 mg of alprazolam per day and 80 mg fluoxetine per day, says that I'm even afraid to take aspirin. Says her son-in-law went camping and took her Xanax medication with him, she doesn't know why. This was Rx'ed by PCP about 4 days ago.Saw surgical oncologist yesterday, doesn't know if she was advised to start/stop aspirin? No clinic notes for specialist available yet.Not interested in speaking with the crisis counselors. Telehealth Have you gone to the ER/Urgent care for s/s of high fever, cough, shortness of breath, or other concerning respiratory symptoms? noHave you been screened or tested for Covid-19/Brown virus? noDo you live with, or regularly exposed to someone with a diagnosis of Covid-19/ Brwon Virus? no Depression Telehealth Patient has give n consent for telemedicine appointment. Start time: 10:10 AM. End time: 10:21 AM. telehealth patient has been offered a telehealth visit by telephone. She has been informed that this is the formal visit , that insurances and copays still apply., and will be billed. She was given the opportunity to cancel, or reschedule the appointment and has elected to continue by phone.started 1899ended 1914shzack was at the er last night due to anxiety was advised to set up with [facility] which she contacted today she was given [...] down from xanax when patient was in [place] back in [place]/ [place] x 1 weekas far as I [...] new loss of taste or smell? No [facility] F/U pt claims she is planning to return back to [place] to take care of her demented mother. She is homeless here, she has been staying in homeless custodial for the past week, and will be leaving to [place] on am. Her sister is helping her get home. she claims the night she ended up in the hospital she was thrown out of the car by her son in law and she claims he must have picked up the medication, alprazolam. She claims she never got the medication and then ended up at the ER at [facility]. Her daughter who abuses meth supposedly got her evicted in [place]. New Patient Visit Moved her from [place] and needs to be established with a [...] has been prescribed from a physician from [place]. Patient has presented to the ER a few times to get her medications refilled which I have advised her is not appropriate psychiatry referral she moved he 1 month ago due to eviction in her last state of [place], she moved here to be with her [...] Anxiety disorder, unspecified I had to let [facility] is evaluate her and she is upset that I am not willing to RX xanax, after a long hx of concerns for her safety and misuse of this med, I am still not comfortable with it. She was not RX'd this from [email or web address] and was seeing therapist and psychiatrist. I still strongly feel this is not a safe medication for her or any benzodiazepine Related to Insomnia, unspecified type Pt smokes cigarettes and discussed opportunities to quit. Offered quitline referral and information and counseled for at least 5 minutes. Related to Nicotine dependence, unspecified, uncomplicated I have encouraged he r to resume the lipitor and asa. She did miss appt with cardio and she is encouraged to keep the next one. Related to Hyperlipidemia, unspecified hyperlipidemia type she is to keep her a [...] her issues with insomnia. Related to Anxiety will order and call her with res [...] will keep follow up as planned with [facility] and she will continue meds as they [...] to acute depression/anxiety. Must keep appointment with [email or web address] on 01/07. Follow-up with PCP as planned. Advised she call surgical oncologist today to verify if needing to start [...] is encouraged to complete her contact at [facility] since she declined BH here continue taking prozac Related to Adjustment disorder with mixed emotional features Patient is given ref ills of present lamp and other medications as requested. As she will be moving to [place] I have agreed to continue to provide refills on her medications until 17 August therefore she has nearly 2 months to establish care with another provider in her home town. Related to Anxiety Lifestyle education regarding di et Related to BMI of 30.0 - 30.9 (Obese) Giving encouragement to exercise Related to BMI of 30.0 - 30.9 (Obese) refill other meds an d will refer to psychiatry as requested and for therapy Related to Adjustment disorder with mixed emotional features refill RX and she is to fill out records release for history. she will keep her NPV appt. Related to Anxiety Giving encouragement to exercise Related to BMI of 30.0 - 30.9 (Obese) Lifestyle education regarding di et Related to BMI less than 19 Lifestyle education regarding di et Related to BMI of 30.0 - 30.9 (Obese) Assessments Type Assessment Date assessment Anxiety disorder, unspecified Ja assessment Hyperlipidemia, unspecified hype rlipidemia type Mental Status Date Cognitive Assessment Orientation - [place] ed to time, place, person, situation. Patient Care Teams Name Effective Dates (start - stop) Status Members No Information
[2025-03-27 13:35] VITALS: BP 136/82; PULSE 90; RESP 14; TEMP 36.5; O2SAT 99; BMI 26.6
--- NOTE | 2025-03-27 13:35 | A.OFFPC_ITS ---
Vital Signs 03/27/25 13:35 Height 5 ft 3.78 in Weight 154 lb BMI 26.6 BP 136/82 Respiration 14 Pulse 90 Pulse Source Pulse Oximeter Temp 97.7 F Temp Source Temporal Artery Scan Pulse Oximetry (%) 99 Oxygen Delivery Method Room Air Intake Visit Reasons: 1 month follow up Shader And Toner Required: No Accompanied by: Self / Same As Patient Allergies prochlorperazine (From Compazine) Allergy (Mild, Verified 03/27/25 14:15) Unknown Medication List - Last Reconciled 03/27/25 by Shanel Ventura PA-C aspirin 81 mg PO DAILY hydrocodone-acetaminophen 5-325 mg 1 tab PO DAILY hydrocortisone 2.5% 1 appl topical BID-TID PRN lorazepam 0.5 mg PO DAILY naloxone 4 mg/actuation (Narcan) 4 mg intranasal Q2M PRN Tobacco use date assessed: 02/13/25 Dental Screening Dental Screen Date: 02/13/25 HPI 1 month follow up HPI Details The patient is a 60-year-old female presenting for a one-month follow- up visit. The patient has a history of anxiety disorder, which is exacerbated by her heart condition and living alone. She experiences increased anxiety at night, fearing her heart might stop, and has been prescribed lorazepam to manage her symptoms. She occasionally substitutes lorazepam with marijuana gummies. 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 She has experienced cardiac arrest three times since 2019, with her heart stopping on Monday this year. She has an upcoming cardiology appointment and is not considering surgical intervention for the valve issue. The patient reports a dermatological condition on her legs persisting for four years, which has not been evaluated by a tube wrapper due to a miscommunication regarding her address. She plans to correct the address issue to facilitate dermatological consultation. The patient has arthritis in her left shoulder, which contributes to her pain and anxiety. She is on a pain contract requiring Narcan at home and is subject to random drug screenings and pill counts. The patient has a history of hypercholesterolemia but has opted not to take medication, instead managing her condition through dietary changes. She reports feeling better with improved dietary habits. The patient's mother has Alzheimer's disease, which adds to her stress and anxiety. The patient lives alone, with her daughters residing in [place], contributing to her feelings of isolation. Social history - Housing: Lives alone in [facility]. - Family: Has three daughters who live i [facility]. - Substance Use: Occasionally uses georgi chaney gummies. - Nutrition: Managing hypercholesterolem ia through dietary changes. [facility] Medical History (Updated 03/27/25 @ 14:22 by Shanel Ventura PA-C) Arthritis of left shoulder Wound of right leg Heart valve disorder Chronic pain Elevated AST (SGOT) Elevated alkaline phosphatase level Pure hypercholesterolemia, unspecified Hyperlipidemia Anxiety Arthritis Tinnitus Eczema Pacemaker Prolonged QT syndrome Family History Father Heart problem Mother AD (Alzheimer's disease) Social History Housing: Apartment Alcohol intake: current Alcohol intake frequency: does not drink Patient Tobacco Use Status: Former Tobacco user Substance Use Type: Marijuana service: No Current occupational status: disabled Cognitive needs: No Hearing needs: No Vision needs: Yes (rx glasses) Questionnaire PHQ-9 Over the last 2 weeks, how often have you been bothered by any of the following problems? 1. Little interest or pleasure in doing things: not at all 2. Feeling down, depressed, or hopeless: not at all 3. Trouble falling or staying asleep, or sleeping too much: not at all 4. Feeling tired or having little energy: not at all 5. Poor appetite or overeating: not at all 6. Feeling bad about yourself - or that you are a failure or have let yourself or your family down: not at all 7. Trouble concentrating on things, such as reading the newspaper or watching television: not at all 8. Moving or speaking so slowly that other people could have noticed. Or the opposite - being so fidgety or restless that you have been moving around a lot more than usual: not at all 9. Thoughts that you would be better off or of hurting yourself in some way: not at all Total score: 0 Depression Screening Interpretation: Negative Depression Screening Done: Yes 61048 - PHQ-9 Billing: Yes Source: Developed by Drs. Luis Vásquez, Paulina Mauro, Mundo Lawton and colleagues, with an educational sherly from [employer]. Thrive Questionnaire Date Thrive assessed: 02/13/25 I am a: Patient What is your living situation today?: I have a steady place to live Within the past 12 months, did the food you bought not last and you didn't have the money to get more?: Never true Within the past 12 months, did you worry whether your food would run out before you got money to buy more?: Never true Do you have trouble paying for medicines?: No Do you have trouble getting transportation to medical appointments?: No Do you have trouble paying your heating and electricity bill?: No Do you have trouble taking care of your child, family member or friend?: No Do you have trouble with day-to-day activities such as bathing, preparing meals, shopping, managing finances, etc.?: No Are you currently unemployed and looking for a job?: No Are you interested in more education?: No Please select the resources that you would like help with: None THRIVE Score: 0 AUDIT C Alcohol Use Questionnaire (AUDIT-C) 1. How often do you have a drink containing alcohol?: Never 3. How often do you have six or more drinks on one occasion?: Never Total Score: 0 Score Reviewed/Action Taken: No TAMMIE-7 AMB Questionnaire TAMMIE-7 Date TAMMIE - 7 assessed: 02/13/25 Feeling nervous, anxious, or on edge: 0 = Not at all Not being able to stop or control worryin = Not at all Worrying too much about different things: 0 = Not at all Trouble relaxin = Not at all Being so restless that it is hard to sit still: 0 = Not at all Becoming easily annoyed or irritable: 0 = Not at all Feeling afraid as if something awful might happen: 0 = Not at all Total TAMMIE-7 score (0-4 normal; 5-9 mild; 10-14 moderate; 15-21 severe): 0 Source: Developed by Drs. Luis Vásquez, Paulina Mauro, Mundo Lawton and colleagues, with an educational sherly from [employer]. TAMMIE-7 Assessment Billing TAMMIE-7 Assessment Tool: TAMMIE-7 Assessment 26071 Review of Systems Const Details: - Cardiovascular: Reports anxiety related to heart condition, history of cardiac arrest. - Musculoskeletal: Reports arthritis in left shoulder. - Dermatological: Reports persistent skin condition on legs for four years. - Neurological: Reports anxiety, worsened at night. All systems reviewed & are unremarkable except as noted in HPI and below Physical exam (Primary Care) Vital Signs: Last Vital Signs Temp 97.7 F 03/27/25 13:35 Pulse 90 03/27/25 13:35 Resp 14 03/27/25 13:35 BP 136/82 03/27/25 13:35 Pulse Ox 99 03/27/25 13:35 Oxygen Delivery Method Room Air 03/27/25 13:35 Care Plan Goal for BP management: <140/90 at Goal BMI result Body Mass Index 26.6 BMI Assessment/Plan discussion: High BMI High, discussed plan: lifestyle, weight reduction, dietary, physical activity, alcohol moderation and other Tobacco/Smoking Status: Tobacco use Status Tobacco use date assessed 02/13/25 03/27/25 13:41 Patient Tobacco Use Status Former Tobacco user 03/27/25 13:41 PHQ-9: PHQ-9 Score PHQ-9: Total score 0 03/27/25 13:41 Depression Screening Interpretation: Negative Thrive Assessment: Date of Thrive Assessment Date Thrive assessed 02/13/25 03/27/25 13:41 Const Other: Appearance: Alert. Oriented X3. No acute distress. Head: Normal external exam. Normocephalic. Atraumatic. Eyes: Pupils are equal, round, and reactive to light. Extraocular movements intact. Conjunctiva and sclera normal. Eyelids normal. Throat: Pharynx normal. Uvula midline. Moist mucous membranes. Neck: Normal inspection. Neck supple. Full range of motion. Cardiovascular: Normal heart rate and rhythm. Respiratory: No respiratory distress. Painless inspiration. Back: No costovertebral angle tenderness. Full range of motion noted. Skin: Skin warm and dry. Normal skin color. Normal skin turgor. Note: Patient reports a skin condition on legs for four years, not yet evaluated by dermatology. Extremities: No lower extremity edema. Extremities exhibit normal range of motion. Note: Patient reports arthritis in the left shoulder. Neuro: Oriented X 3. No motor deficit. No sensory deficit. Reflexes normal. Office Procedures Flu Questionnaire Does the patient have a severe egg allergy?: No Does the patient have severe life threatening allergies?: No Does the patient have a fever or illness today?: No Has the patient ever had Guillain-Sevier Syndrome?: No Has the patient ever had any past reaction to a flu shot?: No Immunizations Fluarix [id number] (PF) 45 mcg (15 mcg x 3)/0.5 mL IM syringe Performing Provider: Shanel Ventura PA-C [facility] Documented (not given) by: NATALIIA Hardin on 03/27/25 13:41 Reason Not Given: Patient Refused Coding Level of Care Code Est Pt Level 4 (52854) Complex EM visit Add On G2211 Diagnoses Anxiety F41.9 Heart valve disorder I38 Wound of right leg S81.801A Arthritis of left shoulder M19.012 Pure hypercholesterolemia, unspecified E78.00 Additional Codes TAMMIE-7 Assessment Billing - TAMMIE-7 Assessment Tool: TAMMIE-7 Assessment 82870 ([id number]) PHQ-9 - 59872 - PHQ-9 Billing: Yes ([id number]) Assessment & Plan Assessment & Plan (1) Anxiety: Code(s): F41.9 - Anxiety disorder, unspecified Category: Medical Plan: The patient is advised to continue with lorazepam 0.5 mg at bedtime she was reduced from 3 times a day from her prior provider Dr. Betts for anxiety management, particularly at night when symptoms worsen. A referral to a psychiatrist, Joy Elmore, is planned to evaluate her medication regimen and consider the possibility of a support pet to help with anxiety. (2) Heart valve disorder: Code(s): I38 - Endocarditis, valve unspecified Category: Medical Plan: The patient is scheduled for a cardiology follow-up to monitor her heart valve disorder, with no current plans for surgical intervention. (3) Wound of right leg: Code(s): S81.801A - Unspecified open wound, right lower leg, initial encounter Category: Medical Plan: The patient is advised to correct her address in the system to ensure proper communication with dermatology for evaluation of her chronic skin condition. (4) Arthritis of left shoulder: Code(s): M19.012 - Primary osteoarthritis, left shoulder Category: Medical Plan: The patient is on a pain management contract, which includes the requirement to have Narcan at home and undergo random drug screenings and pill counts. She is on Hayden she was on Hayden 3 times a day was reduced to once a day. Narcan was given. Pain contract filled. Patient has 1 week to have her drug urine screen due to she has rise and it takes her 1 week to set the rides up for any appointments or blood draws. I explained to her if she does not have the drug screen by then we will not be sending the prescription for the rest of the month. She will return in 30 days. She is agreeable to the pain management contract. (5) Pure hypercholesterolemia, unspecified: Code(s): E78.00 - Pure hypercholesterolemia, unspecified Category: Medical Plan: The patient is managing her hypercholesterolemia through dietary modifications and reports improvement in her condition. Plan Plan Patient was informed and verbally consented to the use of an ambient scribe for clinic note documentation during this visit. 1. Anxiety Disorder The patient is advised to continue with lorazepam for anxiety management, particularly at night when symptoms worsen. A referral to a psychiatrist, Joy Elmore, is planned to evaluate her medication regimen and consider the possibility of a support pet to help with anxiety. 2. Heart Valve Disorder The patient is scheduled for a cardiology follow-up to monitor her heart valve disorder, with no current plans for surgical intervention. 3. Dermatological Condition On Legs The patient is advised to correct her address in the system to ensure proper communication with dermatology for evaluation of her chronic skin condition. 4. Arthritis Of The Left Shoulder The patient is on a pain management contract, which includes the requirement to have Narcan at home and undergo random drug screenings and pill counts. 5. Hypercholesterolemia The patient is managing her hypercholesterolemia through dietary modifications and reports improvement in her condition. During the visit, we discussed the importance of managing anxiety with lorazepam, particularly at night, and the potential benefits of consulting with a psychiatrist for further evaluation of her medication regimen. We also reviewed the necessity of maintaining a pain management contract, including having Narcan at home and undergoing random drug screenings. The patient was informed about the need to update her address for dermatology follow-up and the importance of dietary management for hypercholesterolemia. Orders: Orders Influenza [id number] Immunization Today Z23 - Encounter for immunization Drug Screen Urine Today G89.29 - Other chronic pain Referrals Psychiatry Outpatient Consultation Service F41.9 - Anxiety disorder, unspecified Psychiatry Referral F41.9 - Anxiety disorder, unspecified Counseling Referral F41.9 - Anxiety disorder, unspecified Medications: Refilled hydrocodone-acetaminophen 5-325 mg 1 tab PO DAILY 7 tabs 0RF lorazepam 0.5 mg PO DAILY 7 tabs 0RF Patient Instructions: - Continue taking lorazepam as prescribed, especially at night. - Follow up with the psychiatrist, Joy Elmore, for medication evaluation and support pet consideration. - Correct your address in the system to ensure proper communication with dermatology. - Maintain dietary changes to manage cholesterol levels. - Ensure Narcan is available at home and comply with the pain management contract requirements.
--- OUTSIDE RECORDS SUMMARY | 2025-03-27 17:09 | XMS_ITS | Encounter Summary ---
Author Organization [facility] Address [address] [place] [address] Phone Care Team Providers Care Compensation Administrator Name Role Phone Diallo Betts MD Primary Care Provider [phone]- [phone] Encounter Details Date Type Department Care Team (Late st Contact Info) Description 07/15/2024 Telephone [facility] [address], [address] [place] [address] Jimena Rico RN [address] [place] [address] [email or web address] Social History Tobacco Use Types Packs/Day [...] as of this encounter Plan of Treatment Not on file documented as of this encounter Visit Diagnoses Not on filedocumented in this encounter Care Teams Compensation Administrator Relationship Specialty Start Date End Date Diallo Betts MD [address] [place] [id number] PCP - General Internal Medicine 03/04/24 documented as of this encounter Additional Source Comments The information contained in this document represents components of the legal health record. It is not the complete legal health record.[facility]
--- OUTSIDE RECORDS SUMMARY | 2025-03-27 17:09 | XMS_ITS | Clinical Summary ---
Author Organization [facility] Address [address] [address] Phone Care Team Providers Care Social Service Technician Name Role Phone Diallo Betts MD Primary Care Provider [phone]- [phone] Allergies Active Allergy Reactions Criticality Noted Date Comments Codeine Itching,Rash High 09/14/2015 Haloperidol Other (See Comments) 01/01/2021 Affected pace maker Heart problems and has pacemaker Prochlorperazine Other (See Comments),Swelling 01/26/2015 Patient reports a paralysis unable to move Patient reports a paralysis unable to move Medications aspirin 81 MG EC tablet Take 81 mg by mouth daily. Active atorvastatin (LIPITOR) 20 MG tablet take 1 tablet by mouth everyday at bedtime 02/05/2024 Active diphenhydrAMINE (BENADRYL) 25 mg capsule Take 25 mg by mouth every 6 (six) hours as needed. Active HYDROcodone-wilmer taminophen (NORCO) 5-325 mg per tablet Take 1 tablet by mouth 3 (three) times a day as needed. 02/19/2024 Active LORazepam (ATIVAN) 0.5 MG tablet Take 0.5 mg by mouth 3 (three) times a day. 02/01/2024 Active sulindac (CLINORIL) 200 MG tablet TAKE 1 TABLET BY MOUTH 2 TIMES PER DAY WITH FOOD 01/05/2024 Active Active Problems Problem Noted Date Diagnosed Date ICD (implantable cardioverter-defibrillator) in place 03/04/2024 Assessment & Plan (03/04/2024 1:51 PM EDT): Device interrogation does not show any evidence of arrhythmia since December 2020. TIA (transient ischemic attack) 03/04/2024 Assessment & Plan (03/04/2024 1:52 PM EDT): No evidence of atrial fibrillation on device interrogation. RAJ ruled out PFO. Continue cholesterol medications Encounters Date Type Department Care Team Description 02/07/2025 Orders Only [facility] [address], [address] [place] [address] Raysa Hussein MD 01/31/2025 Orders Only [facility] [address], [address] [place] [address] Raysa Hussein MD 01/02/2025 Telephone [facility] [address], [address] [place] [address] Kirstin Schaefer 01/02/2025 Orders Only [facility] [address], [address] [place] [address] Janie Vieyra DNP Failure of pacemaker lead, initial encounter (Primary Dx) 01/01/2025 Telephone [facility] [address], [address] [place] [address] Janie Vieyra DNP from Last 3 Months Social History Tobacco Use Types Packs/Day Years [...] on file Sexual Orientation Not on file Last Filed Vital Signs Vital Sign Reading Time Taken Comments Blood Pressure 134/76 03/04/2024 1:25 PM EDT Pulse 92 03/04/2024 1:25 PM EDT Temperature - - Respiratory Rate - - Oxygen Saturation - - Inhaled Oxygen Concentration - - Weight 65.8 kg (145 lb) 03/04/2024 1:25 PM EDT Height 160 cm (5' 3 ) 03/04/2024 1:25 PM EDT Body Mass Index 25.69 03/04/2024 1:25 PM EDT Plan of Treatment Health Maintenance Due Date Last Done Comments Adult Td,Tdap Booster 1964 LIPID PANEL 1964 DEPRESSION SCREENING 1976 SMOKING Hx and SMOKELESS TOB ACCO SCREENING 02/26/1977 HEPATITIS C SCREENING 02/26/1982 HIV ONE-TIME SCREENING (18-6 5 YEARS) 02/26/1982 PAP SMEAR 02/26/1985 SCREENING FOR DIABETES 02/26/1999 MAMMOGRAM 2004 COLOGUARD 02/26/2009 COLONOSCOPY 02/26/2009 COLORECTAL CANCER SCREENING 02/26/2009 FIT TEST 02/26/2009 FOBT 02/26/2009 SIGMOIDOSCOPY 02/26/2009 VIRTUAL COLONOSCOPY 02/26/2009 PNEUMOCOCCAL VACCINES (50+ y ears) (1 of 1 - PCV) 02/26/2014 ZOSTER VACCINES (1 of 2) 02/26/2014 RSV VACCINE (1 - Risk 60-74 years 1-dose series) 2024 INFLUENZA VACCINE (#1) 2025 COVID-19 VACCINE (1 - 2023-2 5 season) 2025 HEPATITIS A VACCINES Aged Out No long er eligible based on patient's age to complete this topic HIB VACCINES Aged Out No longer eligi ble based on patient's age to complete this topic MENINGOCOCCAL VACCINES (ACWY) Aged Out No longer eligible based on patient's age to complete this topic MENINGOCOCCAL VACCINES (B) Aged Out N o longer eligible based on patient's age to complete this topic Medical Devices Not on file Procedures Procedure Name Priority Date/Time Associated Diagnosis Comments OUTSIDE EP STUDY Routine 12/27/2024 12:46 PM EDT from Last 3 Months Results * Outside EP Study Report Only (12/27/2024 12:46 PM EDT) us Historical Provider MD JEFFERY ANDERSON Final Result from Last 3 Months Insurance [place] B Member Subscriber Plan / Payer (Ef fective 2014-Present) Name:Melanie Browning Member ID:[id number] Relation to Subscriber:Self Name:Melanie Browning Subscriber ID:[id number] Payer ID:[id number] Group ID:Not on file Type:Medicare Address: [facility] [employer] [id number] [place] & B [place] B Care Teams Social Service Technician Relationship Specialty Start Date End Date Diallo Betts MD [address] [place] [address] PCP - General Internal Medicine 03/04/24 Additional Source Comments The information contained in this document represents components of the legal health record. It is not the complete legal health record.[facility]
--- OUTSIDE RECORDS SUMMARY | 2025-03-27 17:09 | XMS_ITS | Encounter Summary ---
Author Organization [facility] Address [address] [place] [address] Phone Care Team Providers Care Manager Recovery Name Role Phone Diallo Betts MD Primary Care Provider [phone]- [phone] Encounter Details Date Type Department Care Team (Late st Contact Info) Description 01/01/2025 Telephone [facility] [address] [facility] [address], [address] [place] [address] Janie Vieyra DNP [address] [facility], [address] [place] [address] [email or web address] Social History Tobacco Use Types Packs/Day Years [...] on file documented as of this encounter Progress Notes * Jimena Rico, YENNI - 01/06/2025 2:27 PM EDT I spoke to pt she is followed at [facility] EP service Lead replacement will be done January 14 2025. I will release from [facility] and [facility]. Thank you * Darcie Holly - 01/06/2025 10:14 AM EDT Patient states that she sees [facility]. She requests a call from clinical as to a miscommunication. She is not scheduling today. * Kirstin Schaefer - 01/02/2025 1:19 PM EDT Lvm to schedule * Jimena Rico RN - 01/01/2025 4:19 PM EDT Images from the original note were not included. Note Not sure Message on 10-24-2024 has been resolved. [employer] DDD ICD implanted 12-25-2019,CXR to confirm lead FX. Appt with Dr Díaz 03-04-2025.Thank you documented in this encounter Plan of Treatment Not on file documented as of this encounter Visit Diagnoses Not on filedocumented in this encounter Care Teams Manager Recovery Relationship Specialty Start Date End Date Diallo Betts MD [address] [place] [address] PCP - General Internal Medicine 03/04/24 documented as of this encounter Additional Source Comments The information contained in this document represents components of the legal health record. It is not the complete legal health record.[facility]
== END 2025-03-27 14:11 | disposition home or self-care (01) ==
LOC: HO.HMCSH 13:07
PROVIDERS: PCP Physician Assistant Medical; Visit Provider Physician Assistant Medical
DX: F41.9 Anxiety disorder, unspecified (principal); I38 Endocarditis, valve unspecified; S81.801A Unspecified open wound, right lower leg, initial encounter; M19.012 Primary osteoarthritis, left shoulder; E78.00 Pure hypercholesterolemia, unspecified; Z23 Encounter for immunization

== ENCOUNTER → 2025-03-27 13:07 | Outpatient (BNVA) | payer MEDICARE, MEDICAID, SELFPAY | PROVIDERS: PCP Physician Assistant Medical; Visit Provider Physician Assistant Medical | DX: F41.9 Anxiety disorder, unspecified (principal); I38 Endocarditis, valve unspecified; S81.801A Unspecified open wound, right lower leg, initial encounter; M19.012 Primary osteoarthritis, left shoulder; E78.00 Pure hypercholesterolemia, unspecified | CPT/HCPCS: 90471; 96127; 99212 ==

== ENCOUNTER 2025-04-30 14:41 | Outpatient (AMB) | payer MEDICARE, MEDICAID, SELFPAY ==
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
[2025-04-30 14:45] VITALS: BP 134/76; PULSE 80; TEMP 36.2; O2SAT 96; BMI 27.2
--- NOTE | 2025-04-30 14:45 | MHC.PC.OV ---
Vital Signs 04/30/25 14:45 Height 5 ft 3.78 in Weight 157 lb 4 oz BMI 27.2 BP 134/76 Blood Pressure Location Rt brachial Position Sitting Pulse 80 Pulse Source Pulse Oximeter Temp 97.2 F Temp Source Temporal Artery Scan Pulse Oximetry (%) 96 Oxygen Delivery Method Room Air Intake Visit Reasons: Med Check Intake Note: Ongoing right leg wound, wants dermatology referral Top Closer Required: No Accompanied by: Self / Same As Patient Allergies prochlorperazine (From Compazine) Allergy (Mild, Verified 04/30/25 17:20) Unknown Medication List - Last Reconciled 04/30/25 by Shanel Ventura PA-C albuterol sulfate 90 mcg/actuation 1 inh inhalation QID PRN aspirin 81 mg PO DAILY fexofenadine-pseudoephedrine 60-120 mg ER (Susy-D 12 Hour) 1 tab PO Q12H PRN hydrocodone-acetaminophen 5-325 mg 1 tab PO BID 30 days hydrocortisone 2.5% 1 appl topical BID-TID PRN lorazepam 0.5 mg PO BID 30 days naloxone 4 mg/actuation (Narcan) 4 mg intranasal Q2M PRN Tobacco use date assessed: 04/30/25 Dental Screening Dental Screen Date: 04/30/25 Did you have a dental visit in the last 12 months?: No HPI Med Check HPI Details The patient is a 60-year-old female presenting for a one-month follow-up visit primarily for medication management and chronic pain assessment. The patient reports chronic pain managed with narcotic medication, facing challenges in attending monthly visits due to living alone and transportation issues. She has been on a reduced dosage of her narcotic medication and requests an increase due to inadequate pain control. The patient experiences anxiety, particularly at night, and has been on a reduced dosage of her anxiety medication. She reports that the current dosage is insufficient and requests an increase to her previous dosage. She mentions a recent visit to her hide measuring machine operator, where she was informed of a heart valve leakage, though reassured it is not a significant concern at this time. The patient has a history of arthritis in her left shoulder, contributing to her pain symptoms. She reports an allergic reaction to cats, causing respiratory distress when visiting her sister to help care for her mother. She has been advised to use an albuterol inhaler and take Susy before exposure. Social History - Lives alone, which presents challenges in attending frequent medical appointments. - Visits sister monthly to help care for her mother, leading to exposure to allergens. [facility] Medical History (Updated 04/30/25 @ 17:29 by Shanel Ventura PA-C) Cat allergies Arthritis of left shoulder Wound of right leg Heart valve disorder Chronic pain Elevated AST (SGOT) Elevated alkaline phosphatase level Pure hypercholesterolemia, unspecified Hyperlipidemia Anxiety Arthritis Tinnitus Eczema Pacemaker Prolonged QT syndrome Family History Father Heart problem Mother AD (Alzheimer's disease) Social History Housing: Apartment Alcohol intake: current Alcohol intake frequency: does not drink Patient Tobacco Use Status: Former Tobacco user Substance Use Type: Marijuana service: Yes Current occupational status: disabled Cognitive needs: No Hearing needs: No Vision needs: Yes (rx glasses) Questionnaire PHQ-9 Over the last 2 weeks, how often have you been bothered by any of the following problems? 1. Little interest or pleasure in doing things: not at all 2. Feeling down, depressed, or hopeless: not at all 3. Trouble falling or staying asleep, or sleeping too much: not at all 4. Feeling tired or having little energy: not at all 5. Poor appetite or overeating: not at all 6. Feeling bad about yourself - or that you are a failure or have let yourself or your family down: not at all 7. Trouble concentrating on things, such as reading the newspaper or watching television: not at all 8. Moving or speaking so slowly that other people could have noticed. Or the opposite - being so fidgety or restless that you have been moving around a lot more than usual: not at all 9. Thoughts that you would be better off or of hurting yourself in some way: not at all Total score: 0 Depression Screening Interpretation: Negative Depression Screening Done: Yes 11098 - PHQ-9 Billing: Yes Source: Developed by Drs. Luis Vásquez, Paulina Mauro, Mundo Lawton and colleagues, with an educational sherly from [employer]. Thrive Questionnaire Date Thrive assessed: 04/30/25 I am a: Patient What is your living situation today?: I have a steady place to live Within the past 12 months, did the food you bought not last and you didn't have the money to get more?: Never true Within the past 12 months, did you worry whether your food would run out before you got money to buy more?: Never true Do you have trouble paying for medicines?: No Do you have trouble getting transportation to medical appointments?: No Do you have trouble paying your heating and electricity bill?: No Do you have trouble taking care of your child, family member or friend?: No Do you have trouble with day-to-day activities such as bathing, preparing meals, shopping, managing finances, etc.?: No Are you currently unemployed and looking for a job?: No Are you interested in more education?: No Please select the resources that you would like help with: None THRIVE Score: 0 AUDIT C Alcohol Use Questionnaire (AUDIT-C) 1. How often do you have a drink containing alcohol?: Never 3. How often do you have six or more drinks on one occasion?: Never Total Score: 0 Score Reviewed/Action Taken: No TAMMIE-7 AMB Questionnaire TAMMIE-7 Date TAMMIE - 7 assessed: 04/30/25 Feeling nervous, anxious, or on edge: 0 = Not at all Not being able to stop or control worryin = Not at all Worrying too much about different things: 0 = Not at all Trouble relaxin = Not at all Being so restless that it is hard to sit still: 0 = Not at all Becoming easily annoyed or irritable: 0 = Not at all Feeling afraid as if something awful might happen: 0 = Not at all Total TAMMIE-7 score (0-4 normal; 5-9 mild; 10-14 moderate; 15-21 severe): 0 Source: Developed by Drs. Luis Vásquez, Paulina Mauro, Mundo Lawton and colleagues, with an educational sherly from [employer]. TAMMIE-7 Assessment Billing TAMMIE-7 Assessment Tool: TAMMIE-7 Assessment 99539 Review of Systems Const Details: - Cardiovascular: Reports heart valve leakage. Denies chest pain or palpitations. - Musculoskeletal: Reports chronic pain and arthritis in the left shoulder. - Respiratory: Reports allergic reaction to cats causing respiratory distress. Denies chronic cough or wheezing. - Psychiatric: Reports anxiety, particularly at night. All systems reviewed & are unremarkable except as noted in HPI and below Physical exam (Primary Care) Vital Signs: Last Vital Signs Temp 97.2 F 04/30/25 14:45 Pulse 80 04/30/25 14:45 BP 134/76 04/30/25 14:45 Pulse Ox 96 04/30/25 14:45 Oxygen Delivery Method Room Air 04/30/25 14:45 Care Plan Goal for BP management: <140/90 at Goal BMI result Body Mass Index 27.2 BMI Assessment/Plan discussion: High BMI High, discussed plan: lifestyle, weight reduction, dietary, physical activity, alcohol moderation and other Tobacco/Smoking Status: Tobacco use Status Tobacco use date assessed 04/30/25 04/30/25 14:47 Patient Tobacco Use Status Former Tobacco user 04/30/25 14:47 PHQ-9: PHQ-9 Score PHQ-9: Total score 0 04/30/25 14:47 Depression Screening Interpretation: Negative Thrive Assessment: Date of Thrive Assessment Date Thrive assessed 04/30/25 04/30/25 14:47 Const Other: Appearance: Alert. Oriented X3. No acute distress. Head: Normal external exam. Normocephalic. Atraumatic. Eyes: Pupils are equal, round, and reactive to light. Extraocular movements intact. Conjunctiva and sclera normal. Eyelids normal. Throat: Pharynx normal. Uvula midline. Moist mucous membranes. Neck: Normal inspection. Neck supple. Full range of motion. Cardiovascular: Normal heart rate and rhythm. Respiratory: No respiratory distress. Painless inspiration. Back: Full range of motion noted. Skin: Skin warm and dry. Normal skin color. Normal skin turgor. Patient reports a persistent skin issue for four years, not resolved with hydrocortisone cream; referred to director of business continuity. Eczema like rash to lower legs. No additional rashes/lesions/lacerations noted. Extremities: Extremities exhibit normal range of motion. Patient reports arthritis in left shoulder and pain in thumb. Neuro:Patient reports increased anxiety, medication adjusted accordingly. Office Procedures Flu Questionnaire Does the patient have a severe egg allergy?: No Does the patient have severe life threatening allergies?: No Does the patient have a fever or illness today?: No Has the patient ever had Guillain-[place] Syndrome?: No Has the patient ever had any past reaction to a flu shot?: No Immunizations Fluarix [id number] (PF) 45 mcg (15 mcg x 3)/0.5 mL IM syringe Performing Provider: Shanel Ventura PA-C [facility] Documented (not given) by: Ivon Kan CMA on 04/30/25 14:57 Reason Not Given: Patient Refused Coding Level of Care Code Est Pt Level 4 (36672) Complex EM visit Add On G2211 Diagnoses Chronic pain G89.29 Anxiety F41.9 Heart valve disorder I38 Cat allergies J30.81 Arthritis of left shoulder M19.012 Additional Codes TAMMIE-7 Assessment Billing - TAMMIE-7 Assessment Tool: TAMMIE-7 Assessment 75163 ([id number]) PHQ-9 - 21889 - PHQ-9 Billing: Yes ([id number]) Time Spent (min) 60 Assessment & Plan Assessment & Plan (1) Chronic pain: Code(s): G89.29 - Other chronic pain Category: Medical Plan: The patient will continue with her current narcotic medication regimen, with prescriptions provided monthly via phone call to reduce the need for frequent visits. She has been advised to monitor her pain levels and report any significant changes. Patient is currently on [place] b.i.d.. She already signed a pain contract. She passed drug screen. She has Narcan at home. (2) Anxiety: Code(s): F41.9 - Anxiety disorder, unspecified Category: Medical Plan: The patient will continue with her current narcotic medication regimen, with prescriptions provided monthly via phone call to reduce the need for frequent visits. She has been advised to monitor her pain levels and report any significant changes. She will be on lorazepam b.i.d.. (3) Heart valve disorder: Code(s): I38 - Endocarditis, valve unspecified Category: Medical Plan: The patient is advised to follow up with her hide measuring machine operator for ongoing monitoring of her heart valve condition. (4) Cat allergies: Code(s): J30.81 - Allergic rhinitis due to animal (cat) (dog) hair and dander Category: Medical Plan: The patient is instructed to use an albuterol inhaler and take Susy before exposure to cats to prevent allergic reactions. (5) Arthritis of left shoulder: Code(s): M19.012 - Primary osteoarthritis, left shoulder Category: Medical Plan: The patient is advised to continue managing her arthritis symptoms with current medications and report any worsening of symptoms. Plan Plan Patient was informed and verbally consented to the use of an ambient scribe for clinic note documentation during this visit. 1. Chronic Pain The patient will continue with her current narcotic medication regimen, with prescriptions provided monthly via phone call to reduce the need for frequent visits. She has been advised to monitor her pain levels and report any significant changes. 2. Anxiety The patient's anxiety medication dosage will be increased to her previous level to better manage her symptoms, particularly at night. 3. Heart Valve Leakage The patient is advised to follow up with her hide measuring machine operator for ongoing monitoring of her heart valve condition. 4. Allergic Reaction To Cats The patient is instructed to use an albuterol inhaler and take Susy before exposure to cats to prevent allergic reactions. 5. Arthritis In Left Shoulder The patient is advised to continue managing her arthritis symptoms with current medications and report any worsening of symptoms. During the visit, we discussed the management of the patient's chronic pain and anxiety, adjusting her medication regimen to better address her symptoms. We also reviewed her heart valve condition and the need for ongoing cardiology follow-up. Additionally, we addressed her allergic reactions to cats and provided instructions for preventive measures. The patient was advised to continue her current arthritis management and report any changes. Orders: Orders Influenza [id number] Immunization Today Z23 - Encounter for immunization Medications: New albuterol sulfate 90 mcg/actuation 1 inh inhalation QID PRN 6.7 grams 0RF shortness of breath or wheezing fexofenadine-pseudoephedrine 60-120 mg ER (Susy-D 12 Hour) 1 tab PO Q12H PRN 60 tabs 3RF allergy symptoms Changed From lorazepam 0.5 mg PO DAILY 20 tabs 0RF To lorazepam 0.5 mg PO BID 60 tabs 0RF 30 days From hydrocodone-acetaminophen 5-325 mg 1 tab PO DAILY 20 days 20 tabs 0RF To hydrocodone-acetaminophen 5-325 mg 1 tab PO BID 60 tabs 0RF 30 days Patient Instructions: - Continue current narcotic medication regimen and call monthly for refills. - Increase anxiety medication dosage as prescribed. - Follow up with hide measuring machine operator for heart valve monitoring. - Use albuterol inhaler and take Susy before exposure to cats. - Continue managing arthritis symptoms and report any worsening.
--- OUTSIDE RECORDS SUMMARY | 2025-04-30 18:24 | XMS_ITS | Encounter Summary ---
Author Organization [facility] Address [address] [place] [address] Phone Care Team Providers Care Manager Project Name Role Phone Diallo Betts MD Primary Care Provider [phone]- [phone] Encounter Details Date Type Department Care Team (Late st Contact Info) Description 07/15/2024 Telephone [facility] [address], [address] [place] [address] Jimena Rico RN [address] [place] [address] [email or web address] Social History Tobacco Use Types Packs/Day [...] filedocumented in this encounter Care Teams Manager Project Relationship Specialty Start Date End Date Diallo Betts MD [address] [place] [id number] PCP - General Internal Medicine 03/04/24 documented as of this encounter Additional Source Comments The information contained in this document represents components of the legal health record. It is not the complete legal health record.[facility]
--- OUTSIDE RECORDS SUMMARY | 2025-04-30 18:24 | XMS_ITS | Clinical Summary ---
Author Organization [facility] Address [address] [address] Phone Care Team Providers Care Auto Washer Name Role Phone Diallo Betts MD Primary Care Provider [phone]- [phone] Allergies Active Allergy Reactions Criticality Noted Date [...] Department Care Team Description 02/07/2025 Orders Only [facility] [address], [address] [place] [address] Raysa Hussein MD 01/31/2025 Orders Only [facility] [address], [address] [place] [address] ProviderRaysa MD from Last 3 Months Social History Tobacco [...] 02/26/2014 ZOSTER VACCINES (1 of 2) 02/26/2014 INFLUENZA VACCINE (#1) 2025 COVID-19 VACCINE (1 - 2024-2 6 season) 2025 RSV VACCINE (1 - 1-dose 75+ series) 02/26/2039 HEPATITIS A VACCINES Aged Out No long [...] this topic Medical Devices Not on file Insurance MEDICARE PART A & B Member Subscriber Plan / Payer (Ef fective 2014-Present) Name:Melanie Browning Member ID:[id number] Relation to Subscriber:Self Name:Melanie Browning Subscriber ID:[id number] Payer ID:[id number] Group ID:Not on file Type:Medicare Address: [facility] [email or web address] [facility] [address] [place] [address] [place] A & B [place] & B [facility] MEDICARE PART A & B Care Teams Auto Washer Relationship Specialty Start Date End Date Diallo Betts MD [address] [place] [id number] PCP - General Internal Medicine 03/04/24 Additional Source Comments The information contained in this document represents components of the legal health record. It is not the complete legal health record.[facility]
== END 2025-04-30 15:18 | disposition home or self-care (01) ==
LOC: HO.HMCSH 14:41
PROVIDERS: PCP Physician Assistant Medical; Visit Provider Physician Assistant Medical
DX: G89.29 Other chronic pain (principal); F41.9 Anxiety disorder, unspecified; I38 Endocarditis, valve unspecified; J30.81 Allergic rhinitis due to animal (cat) (dog) hair and dander; M19.012 Primary osteoarthritis, left shoulder; Z23 Encounter for immunization

== ENCOUNTER → 2025-04-30 14:41 | Outpatient (BNVA) | payer MEDICARE, MEDICAID, SELFPAY | PROVIDERS: PCP Physician Assistant Medical; Visit Provider Physician Assistant Medical | DX: M19.012 Primary osteoarthritis, left shoulder (principal); F41.9 Anxiety disorder, unspecified; G89.29 Other chronic pain; I38 Endocarditis, valve unspecified; J30.81 Allergic rhinitis due to animal (cat) (dog) hair and dander; Z28.21 Immunization not carried out because of patient refusal | CPT/HCPCS: 90471; 96127; 99212 ==